=== PATIENT | male | born 1975 | race Caucasian/White ===

== ENCOUNTER 2025-01-30 11:22 | Outpatient (AMB) | payer OTHER, SELFPAY ==
--- OUTSIDE RECORDS SUMMARY | 2024-02-16 10:43 | XMS_ITS | Encounter Summary ---
[facility] Organization [facility] Address [address] [place] [address] Care Team Providers Care Home Worker Name Role Phone Yonny Nolasco Primary Care Provider [phone] Encounter Details Date Type Department Care Team (Late st Contact Info) Description 02/16/2024 10:43 AM EDT Hospital Encounter TH HISTORIC ENCOUNTERS EASTERN CONVERSION ONLY Social History Tobacco Use Types Packs/Day Years Used Date Smoking Tobacco: Never Smokeless Tobacco: Never Alcohol Use Standard Drinks/Week Comments Not Currently 0 (1 standard drink = 0.6 oz pur e alcohol) Sex and Gender Information Value Date Recorded Sex Assigned at Male 05/23/2024 10:14 AM EST Legal Sex Male 4:54 PM EDT Gender Identity Male 05/23/2024 10:14 AM EST Sexual Orientation Straight 05/23/2024 10 :14 AM EST documented as of this encounter Last Filed Vital Signs Vital Sign Reading Time Taken Comments Blood Pressure - - Pulse - - Temperature - - Respiratory Rate - - Oxygen Saturation - - Inhaled Oxygen Concentration - - Weight 121 kg (267 lb 10.2 oz) 01/26/2024 10:52 AM EDT Height 188 cm (6' 2 ) 01/26/2024 10:52 AM EDT Body Mass Index 34.36 01/26/2024 10:52 AM EDT documented in this encounter Progress Notes * Historical, Notes Results - 02/16/2024 10:30 AM EDT Suleman arrives ambulatory with steady gait with his for C8 of Docetaxel today. Well appearing and reports that he has been feeling good - stable assessment completed. Port in right chest accessedper protocol with no difficulty, +brisk blood return noted. Labs reviewed and within treatment kirill eters - meds released to pharmacy - Premed given to patient. Patient resting comfortably in recliner with call pride in reach. 1152- Docetaxel infusion up on pump as ordered. 1258 - Infusion completed - well tolerated - good appetite for lunch. Port flushed and deaccessed per protocol. Has next appts in place. Stable upon discharge. documented in this encounter Plan of Treatment Upcoming Encounters Date Type Department Care Team (Late st Contact Info) Description 02/21/2025 3:00 PM EDT Appointment [facility] [address] [place] [phone] 03/14/2025 1:45 PM EST Office Visit [facility] Hematology Oncology [address] [place] [phone] Sj Addison MD [address] [place] [address] documented as of this encounter Visit Diagnoses Not on filedocumented in this encounter Additional Health Concerns Infection Onset Date Last Indicated Resolved Time Respiratory Rule-Out 05/23/2024 05/23/2024 025 2:07 PM EST COVID-19 Rule-Out 05/23/2024 05/23/2024 05/23/2024 2:07 PM EST documented as of this encounter Care Teams Home Worker Relationship Specialty Start Date End Date Yonny Nolasco PA [address] [place] [phone] PCP - General 07/27/23 documented as of this encounter
--- OUTSIDE RECORDS SUMMARY | 2024-02-22 15:01 | XMS_ITS | Encounter Summary ---
[facility] Organization [facility] Address [address] [place] [address] Care Team Providers Care Manufacturing Software Engineer Name Role Phone Yonny Nolasco Primary Care Provider [phone] Encounter Details Date Type Department Care Team (Late st Contact Info) Description 02/22/2024 3:01 PM EDT Hospital Encounter TH HISTORIC ENCOUNTERS EASTERN [...] - Inhaled Oxygen Concentration - - Weight 126 kg (278 lb 14.1 oz) 02/16/2024 11:07 AM EDT Height 188 cm (6' 2 ) 02/16/2024 11:07 AM EDT Body Mass Index 35.81 02/16/2024 11:07 AM EDT documented in this encounter Progress Notes * Historical, Notes Results - 02/22/2024 3:00 PM EDT Arrived amb with for elijosephd. Pt is feeling well, has rash on forearms that is itchy. Has tried benadryl cream but it did not help, asking for something for rash. Halo sent to Dr. Addison, per Dr. Addison, pt should follow up with PCP about rash. Pt also asking when he can get his flu shot, has chemo scheduled for 03/08 but no orders left in [facility], Halo sent to Dr. Addison to see if pt will continue on chemo. He does go to [place] next week on02/27. No more chemo per Dr. Addison, pt already completed 8 cycles. OK for flu shot at any time. Pt in agreement with this plan 1534 Eligard warmed and administered into RIGHT arm, tolerated with burning. Next eligard inj scheduled for 6 months. Appts adjusted in [facility], pt will come upstairs for port flush after next MD f/u inNov. Left amb with , stable at D/C. documented in this encounter Plan of Treatment Upcoming Encounters Date Type Department Care Team (Late st Contact Info) Description 02/21/2025 3:00 PM EDT Appointment [facility] [address] [place] [phone] 03/14/2025 1:45 PM EST Office Visit [facility] Hematology Oncology [address] [place] [phone] Sj Addison MD [address] [place] [address] documented as of this encounter Visit Diagnoses Not on filedocumented in this encounter Additional Health Concerns Infection Onset Date Last Indicated Resolved Time Respiratory Rule-Out 05/23/2024 05/23/2024 025 2:07 PM EST COVID-19 Rule-Out 05/23/2024 05/23/2024 05/23/2024 2:07 PM EST documented as of this encounter Care Teams Manufacturing Software Engineer Relationship Specialty Start Date End Date Yonny Nolasco PA [address] [place] [phone] PCP - General 07/27/23 documented as of this encounter
--- NOTE | 2025-01-30 11:29 | MHC.PC.OV ---
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 Prostate cancer with bone metastasis: - Prostate cancer has metastasized to the bones, affecting the hips, initially causing pain and difficulty walking, now managed with fentanyl patches. - Participating in a clinical trial for six months with no cancer progression noted. - Ostomy in place due to previous bowel obstruction related to prostate cancer. Diabetes mellitus: - Diagnosed with diabetes mellitus for a couple of years, managed with metformin, Lantus, and Trulicity. - Referred to a diabetes clinic for elevated A1c levels noted by cancer care team. Essential hypertension: - Managed with hydrochlorothiazide, libidolato, and lisinopril. Review of Systems - Cardiovascular: Reports high heart rate. Denies chest pain or palpitations. - Respiratory: Denies dyspnea or cough. - Gastrointestinal: Reports good appetite. Denies nausea or vomiting. - Musculoskeletal: Reports initial difficulty walking due to hip pain, now improved. - General: Reports good sleep. Denies fatigue or weight loss. 10-point ROS reviewed and negative except as noted in HPI Past Medical History - Prostate cancer with bone metastasis - Diabetes mellitus - Essential hypertension - Ostomy due to bowel obstruction Health Maintenance - Regular follow-up at diabetes clinic for management of elevated A1c levels. - Participation in clinical trial for prostate cancer management. Physical Exam General: Well-appearing, in no acute distress. Pale Vital signs: Heart rate is high. HEENT: Normocephalic, atraumatic. PERRLA, EOMI. Conjunctiva clear, sclera anicteric. Oropharynx clear, mucous membranes moist. TMs intact bilaterally. Neck: Supple, no lymphadenopathy, no thyromegaly, no JVD or carotid bruits. Cardiovascular: RRR, normal S1/S2, no murmurs, rubs, or gallops. Peripheral pulses 2+ and symmetric. No edema. Respiratory: Lungs clear to auscultation bilaterally, no wheezes, rales, or rhonchi. Normal effort. Abdomen: Soft, non-tender, non-distended. Normoactive bowel sounds. No hepatosplenomegaly, no masses. Ostomy in place on the left side. MSK: Full range of motion, no joint swelling or deformity. Normal gait. Skin: Warm, dry, intact. No rashes, lesions, or pallor. Neuro: Alert and oriented x3. Cranial nerves II-XII intact. Strength 5/5 throughout. Sensation intact. Reflexes 2+ symmetric. Normal coordination and gait. Psych: Appropriate mood and affect. Normal judgment and insight. Plan 1. Prostate Cancer With Bone Metastasis - Continue clinical trial participation and monitor cancer progression. - Manage bone pain with fentanyl patches. - Conduct CT scans to assess current status and plan further treatment. 2. Diabetes Mellitus - Continue diabetes management with current medications and attend diabetes clinic for A1c monitoring. 3. Essential Hypertension - Continue current antihypertensive medications. Discussion Notes During the visit, we discussed the ongoing management of prostate cancer, diabetes, and hypertension. The patient is participating in a clinical trial for prostate cancer, which has shown stability in disease progression. We reviewed the current medication regimen for diabetes and hypertension, emphasizing the importance of adherence. The need for regular follow-up at the diabetes clinic was highlighted to monitor A1c levels. We also discussed the importance of pain management for bone metastasis and the upcoming CT scans to evaluate the current status of the cancer. The patient was offered referrals for child protective services social worker and behavioral health support to address the impact of his condition on his family and daily life. Patient was informed and verbally consented to the use of an ambient scribe for clinic note documentation during this visit. Patient Instructions - Continue taking all prescribed medications as directed. - Attend all scheduled appointments, including the diabetes clinic and upcoming CT scans. - Monitor for any new or worsening symptoms and report them promptly. - Consider discussing child protective services social worker and behavioral health support with your family. [facility] Medical History (Updated 01/30/25 @ 12:11 by Damián Arenas MD) Prostate cancer metastatic to bone Family History (Updated 01/30/25 @ 11:45 by Kayla Champion CMA) Mother Diabetes Father No problems noted. Social History Housing: Apartment Patient Tobacco Use Status: Never used Tobacco service: No Current occupational status: unemployed Cognitive needs: Yes Hearing needs: No Vision needs: No Questionnaire PHQ-9 Over the last 2 weeks, how often have you been bothered by any of the following problems? 1. Little interest or pleasure in doing things: more than half the days 2. Feeling down, depressed, or hopeless: more than half the days 3. Trouble falling or staying asleep, or sleeping too much: not at all 4. Feeling tired or having little energy: more than half the days 5. Poor appetite or overeating: not at all 6. Feeling bad about yourself - or that you are a failure or have let yourself or your family down: not at all 7. Trouble concentrating on things, such as reading the newspaper or watching television: not at all 8. Moving or speaking so slowly that other people could have noticed. Or the opposite - being so fidgety or restless that you have been moving around a lot more than usual: not at all 9. Thoughts that you would be better off or of hurting yourself in some way: not at all Total score: 6 Depression Screening Interpretation: Positive Depression Screening Done: Yes Source: Developed by Drs. Nestor Frey, Nasrin Posada, Mario Jaramillo and colleagues, with an educational shayy from [employer]. Thrive Questionnaire Date Thrive assessed: 01/30/25 I am a: Patient What is your living situation today?: I have a steady place to live Within the past 12 months, did the food you bought not last and you didn't have the money to get more?: Never true Within the past 12 months, did you worry whether your food would run out before you got money to buy more?: Never true Do you have trouble paying for medicines?: No Do you have trouble getting transportation to medical appointments?: No Do you have trouble paying your heating and electricity bill?: Yes Do you have trouble taking care of your child, family member or friend?: No Are you currently unemployed and looking for a job?: No Are you interested in more education?: No Please select the resources that you would like help with: Housing/Halfway and Utilities Currently or been in a relationship where the following occur: No concerns reported THRIVE Score: 1 AUDIT C Alcohol Use Questionnaire (AUDIT-C) 1. How often do you have a drink containing alcohol?: Never Total Score: 0 JENNY-7 AMB Questionnaire JENNY-7 Date JENNY - 7 assessed: 01/30/25 Feeling nervous, anxious, or on edge: 1 = Several days Not being able to stop or control worryin = Several days Worrying too much about different things: 1 = Several days Trouble relaxin = Several days Being so restless that it is hard to sit still: 0 = Not at all Becoming easily annoyed or irritable: 0 = Not at all Feeling afraid as if something awful might happen: 1 = Several days Total JENNY-7 score (0-4 normal; 5-9 mild; 10-14 moderate; 15-21 severe): 5 Source: Developed by Drs. Nestor Frey, Nasrin Posada, Mario Jaramillo and colleagues, with an educational shayy from [employer]. Physical exam (Primary Care) Depression Screening Interpretation: Positive Currently or been in a relationship where the following occur: No concerns reported Coding Level of Care Code New Pt Level 3 (51830) Diagnoses Establishing care with new doctor, encounter for Z76.89 Encounter for screening, unspecified Z13.9 Counseling, unspecified Z71.9 Screening for depression Z13.31 Screening for HIV (human immunodeficiency virus) Z11.4 Routine screening for STI (sexually transmitted infection) Z11.3 Adjustment disorder with mixed anxiety and depressed mood F43.23 Adjustment disorder type: with mixed anxiety and depressed mood Class 2 obesity E66.812 Tachycardia R00.0 Prostate cancer metastatic to bone C61; C79.51 History of colon surgery Z98.890 History of creation of ostomy Z93.9 Assessment & Plan Assessment & Plan (1) Establishing care with new doctor, encounter for: Code(s): Z76.89 - Persons encountering health services in other specified circumstances (2) Encounter for screening, unspecified: Code(s): Z13.9 - Encounter for screening, unspecified (3) Counseling, unspecified: Code(s): Z71.9 - Counseling, unspecified (4) Screening for depression: Code(s): Z13.31 - Encounter for screening for depression (5) Screening for HIV (human immunodeficiency virus): Code(s): Z11.4 - Encounter for screening for human immunodeficiency virus [HIV] (6) Routine screening for STI (sexually transmitted infection): Code(s): Z11.3 - Encounter for screening for infections with a predominantly sexual mode of transmission (7) Adjustment disorder: Code(s): F43.20 - Adjustment disorder, unspecified Qualifiers: Adjustment disorder type: with mixed anxiety and depressed mood Qualified Code(s): F43.23 - Adjustment disorder with mixed anxiety and depressed mood (8) Class 2 obesity: Code(s): E66.812 - Obesity, class 2 (9) Tachycardia: Code(s): R00.0 - Tachycardia, unspecified (10) Prostate cancer metastatic to bone: Code(s): C61 - Malignant neoplasm of prostate; C79.51 - Secondary malignant neoplasm of bone Category: Medical (11) History of colon surgery: Code(s): Z98.890 - Other specified postprocedural states (12) History of creation of ostomy: Code(s): Z93.9 - Artificial opening status, unspecified Plan Orders: Orders Complete Blood Count Auto Diff Today Z13.9 - Encounter for screening, unspecified, Z76.89 - Persons encountering health services in other specified circumstances Comprehensive Met. Panel Today Z13.9 - Encounter for screening, unspecified, Z76.89 - Persons encountering health services in other specified circumstances Hepatitis C Antibody Today Z13.9 - Encounter for screening, unspecified, Z76.89 - Persons encountering health services in other specified circumstances Hemoglobin A1c Today Z13.9 - Encounter for screening, unspecified, Z76.89 - Persons encountering health services in other specified circumstances Hepatitis B Surface Antibody Today Z13.9 - Encounter for screening, unspecified, Z76.89 - Persons encountering health services in other specified circumstances Hepatitis B Surface Antigen Today Z13.9 - Encounter for screening, unspecified, Z76.89 - Persons encountering health services in other specified circumstances HIV Ab/Ag Today Z13.9 - Encounter for screening, unspecified, Z76.89 - Persons encountering health services in other specified circumstances Lipid Panel Today Z13.9 - Encounter for screening, unspecified, Z76.89 - Persons encountering health services in other specified circumstances UA CC w/rflx Micro + Cult Today Z13.9 - Encounter for screening, unspecified, Z76.89 - Persons encountering health services in other specified circumstances Vitamin B12 and Folate Today Z13.9 - Encounter for screening, unspecified, Z76.89 - Persons encountering health services in other specified circumstances Vitamin D 1,25 dihydroxy Today Z13.9 - Encounter for screening, unspecified, Z76.89 - Persons encountering health services in other specified circumstances Referrals Behavioral Health Referral C61 - Malignant neoplasm of prostate, C79.51 - Secondary malignant neoplasm of bone Medic Technician Referral C61 - Malignant neoplasm of prostate, C79.51 - Secondary malignant neoplasm of bone Nurse Navigator Referral C61 - Malignant neoplasm of prostate, C79.51 - Secondary malignant neoplasm of bone Scribe Plan - Not visible on output:
[2025-01-30 11:31] VITALS: BP 114/82; PULSE 112; TEMP 36.9; O2SAT 98; BMI 39.1
--- OUTSIDE RECORDS SUMMARY | 2025-01-30 14:31 | XMS_ITS | Clinical Summary ---
[facility] Address [address] [place] [address] Care Team Providers Care Environmental Health And Safety Manager Name Role Phone Yonny Nolasco Primary Care Provider + Allergies No known active allergies Medications Medication Sig Dispensed Refills Start Date End Date Status atorvastatin (LIPITOR) tablet 20 mg Take 1 tablet (20 mg total) by mouth every night at bedtime. 0 06/03/2023 Active Diclofenac Sodium 1 % GEL 0 07/14/2023 Active Trulicity 3 MG/0.5ML subcutaneous pen-injector INJECT 3 MG SUBCUTANEOUS INFUSION EVERY WEEK, ROTATE INJECTION SITES 0 04/23/2023 Active hydroCHLOROthiazide (HYDRODIURIL) tablet 25 mg 0 07/21/2023 Active Lantus SoloStar 100 UNIT/ML injection 0 07/19/2023 Active B-D UF III MINI PEN NEEDLES 31G X 5 MM MISC USE WITH LANTUS PEN DAILY 0 04/23/2023 Active labetalol (NORMODYNE) 200 MG tablet Take 1 tablet (200 mg total) by mouth 2 (two) times a day. 0 07/04/2023 Active lisinopril (PRINIVIL,ZESTRIL) tablet 40 mg Take 1 tablet (40 mg total) by mouth daily. 0 07/04/2023 Active LORazepam (ATIVAN) 1 MG tablet Take 1 tablet (1 mg total) by mouth every 6 (six) hours as needed. 30 tablet 0 08/10/2023 Active ondansetron (ZOFRAN) 8 MG tablet Take 1 tablet (8 mg total) by mouth every 8 (eight) hours as needed for nausea. 32 tablet 4 08/10/2023 Active predniSONE (DELTASONE) 5 mg tabletIndications:P rostate cancer metastatic to bone (HCC) Take 1 tablet (5 mg total) by mouth daily. 30 tablet 6 09/21/2023 Active fentaNYL (DURAGESIC) 50 MCG/HRIndications:P rostate cancer metastatic to bone (HCC) Place 1 patch onto the skin every third day. 10 patch 0 12/15/2023 Active lidocaine-prilocain e (EMLA) cream APPLY TOPICALLY ONCE FOR 1 DOSE. 30 g 2 02/08/2024 Active Active Problems Problem Noted Date Diagnosed Date Prostate cancer metastatic to bone 08/23/2023 Rectal cancer metastatic to bone 08/10/2023 Social History Tobacco Use Types Packs/Day Years Used Date Smoking Tobacco: Never Smokeless Tobacco: Never Tobacco Cessation:Counseling Given: Not Answered Alcohol Use Standard Drinks/Week Comments Not Currently 0 (1 standard drink = 0.6 oz pur e alcohol) Sex and Gender Information Value Date Recorded Sex Assigned at Male 07/22/2023 3:52 PM EDT Gender Identity Not on file Sexual Orientation Not on file Job Start Date Occupation Industry Not on file Not on file Not on file Last Filed Vital Signs Vital Sign Reading Time Taken Comments Blood Pressure 115/73 02/22/2024 3:06 PM EDT Pulse 97 02/22/2024 3:06 PM EDT Temperature 36.7 C (98 F) 02/22/2024 3:06 PM EDT Respiratory Rate 18 02/16/2024 11:0 7 AM EDT Oxygen Saturation 98% 02/22/2024 3:06 PM EDT Inhaled Oxygen Concentration - - Weight 126.5 kg (278 lb 14.1 oz) 2023 11:07 AM EDT Height 188 cm (6' 2 ) 02/16/2024 11:07 AM EDT Body Mass Index 35.81 02/16/2024 11:07 AM EDT Plan of Treatment Health Maintenance Due Date Last Done Comments Hepatitis B Vaccines (1 of 3 - 3-dose series) 1977 Hepatitis C Screening 1977 COVID-19 Vaccine (#1) 1982 Pneumococcal Vaccine (1 of 2 - PCV) 1983 Depression Screening 1989 BMI Counseling 1995 Preventative Health Evaluation 1995 DTap / Tdap / Td (2 - Tdap) 10/02/2018 10/02/2008 Colon Cancer Screening (Colonoscopy) 2022 Influenza Vaccine (#1) 2025 2, 02/27/2021, 03/12/2018, Additional history exists RSV Ped < 20 months Aged Out No longe r eligible based on patient's age to complete this topic Care Teams Environmental Health And Safety Manager Relationship Specialty Start Date End Date Yonny Nolasco PA [address] [place] [phone] PCP - General Physician Bobcat Driver/Labor 07/27/23
--- OUTSIDE RECORDS SUMMARY | 2025-01-30 14:31 | XMS_ITS | Encounter Summary ---
Author Organization [facility] Address [address] [place] [address] [place] [address] Phone Care Team Providers Care Ticket Scheduler Name Role Phone Gustavo Temple MD Unavailable [phone] Yonny Martinez Unavailable Unavailable Pcp, Unknown Primary Care Provider UnavailSj Montenegro MD Unavailable [phone] Pcp, Not Required Primary Care Provider Unavaila Jennifer Artis RN Unavailable FILI [email or web address]. Juany Szymanski [facility] Unavailable [phone] Annetta Dia PET CREMATORY WORKER, PhD Unavailable Pcp, Unknown Primary Care Provider Unavailabl e Encounter Details Date Type Department Care Team (Late st Contact Info) Description 07/24/2024 [facility] [place] [facility] [address], MRI 300 [facility] 4th [place] [address] Social History Tobacco Use Types Packs/Day Years Used Date Smoking Tobacco: Never Assessed Child or Family Care Answer Date Record ed Do you have problems with on e of the following making it difficult for you to work, study, or receive health care? No 08/04/2023 Education Answer Date Recorded Are you interested in help w ith more adult education (for example, completing high school, GED, job training, learning the Nepalese language, technical skills, or developing parenting skills)? No 08/04/2023 Are you concerned about learning? Not on file 08/04/2023 No 08/04/2023 Yes 08/04/2023 Food Answer Date Recorded Within the past 6 months we worried whether our food would run out before we got money to buy more. I choose not to answer 08/04/2023 Within the past 6 months the food we bought just didn't last and we didn't have enough money to get more. I choose not to answer 08/04/2023 Residential Stability Answer Date Recor ded What is your housing situation today? I have herber sing 08/04/2023 How many times have you move d in the past 12 months? Zero (I did not move) 08/04/2023 Paying for Meds Answer Date Recorded Do you have trouble paying for medicines? No 08/04/2023 Paying Utility Bills Answer Date Record ed Do you have trouble paying your heating or elect ricity bill? Yes 08/04/2023 Transportation Answer Date Recorded Has the lack of transportati on kept you from medical appointments or from getting medications? I choose not to answer 08/04/2023 Digital Access Answer Date Recorded No 08/01/2023 No 08/01/2023 Reliable internet access at home? Not on file 08/01/2023 Device with a working camera? Not on file Sex and Gender Information Value Date Recorded Sex Assigned at Male 07/29/2023 11:41 AM EDT Legal Sex Male 11:38 AM EDT Gender Identity Male 07/29/2023 11:41 AM EDT Sexual Orientation Straight 07/29/2023 11 :41 AM EDT documented as of this encounter Last Filed Vital Signs Vital Sign Reading Time Taken Comments Blood Pressure - - Pulse - - Temperature - - Respiratory Rate - - Oxygen Saturation - - Inhaled Oxygen Concentration - - Weight 123.4 kg (272 lb) 07/25/2024 10:56 AM EDT Height - - Body Mass Index 36.48 02/28/2024 3:04 PM EDT documented in this encounter Plan of Treatment Upcoming Encounters Date Type Department Care Team (Late st Contact Info) Description 10/10/2024 [facility] [place] [address] [address] 10/10/2024 Procedure Pass [facility] [place] [address] [address] 02/08/2025 11:30 AM EDT Appointment [facility], Nuclear Medicine [address] [place] [address] Renata Gaston MD [address] [place] [address] Chris@[facility] 02/08/2025 1:30 PM EDT Appointment [place], [place] [address] [address] Renata Gaston MD [address] [place] [address] Chris@[facility] 02/08/2025 2:15 PM EDT Appointment [facility], Nuclear Medicine [address] [place] [address] Renata Gaston MD [address] [place] [address] Chris@[facility] 02/11/2025 1:50 PM EDT Blood Draw Laboratory Services, [facility] [address] [facility] 2nd [place] [address] Renata Gaston MD [address] [place] [address] Chris@[facility] 02/11/2025 3:00 PM EDT Office [facility], [facility] 450 [facility], 11th [place] [address] Wendy Epps MD, MPH 450 [place] [address] ROBIN@[facility] 02/11/2025 3:00 PM EDT Nurse Only [facility], [address], [address] [place] [address] Renata Gaston MD [address] [place] [address] Chris@[facility] 02/11/2025 4:00 PM EDT Infusion Infusion Therapy Services [address], 11th [place] [address] Renata Gaston MD [address] [place] [address] Chris@[facility] Jennifer Suarez RN [address] [place] [address] ELDA@ [facility] 02/12/2025 1:00 PM EDT Appointment [facility], Nuclear Medicine [address] [address] Renata Gaston MD [address] [place] [address] Chris@[facility] 02/20/2025 3:00 PM EDT Telemedicine Adult Palliative Care, [address], [address]th [place] [address] Annetta Dia NP, PhD [address] [place] [address] [place] [address] dyana [email or web address]. Kathe Ferreira MD, MPH [address] [place] [address] [place] [address] [email or web address] documented as of this encounter Visit Diagnoses Not on filedocumented in this encounter Care Teams Ticket Scheduler Relationship Specialty Start Date End Date Yonny Martinez PA [address] [place] [address] PCP - Internal Medicine Physician Mortgage Loan Computation Clerk 08/01/23 01/20/25 Pcp, Unknown PCP - General 08/04/23 08/20/24 Pcp, Not Required [address] [place] [address] PCP - General 08/21/24 01/20/25 Pcp, Unknown PCP - General 01/21/25 Gustavo Temple MD [address] [place] [address] Joseph@[facility] Medical Oncology 08/01/23 Sj Addison MD [address] [place] [phone] Bernadette@[email or web address] Medical Oncology 09/13/23 Jennifer Suarez RN [address] [place] [address] ELDA@[email or web address] Primary Infusion Nurse 08/30/24 Juany Echeverria, [address] [address] cookie@[facility] Policy Advisor Licensed Clinical Policy Advisor 09/10/24 Annetta Dia, PET CREMATORY WORKER, PhD [address] [place] [address] [place] [address] krystle [email or web address] Palliative Care 10/03/24 documented as of this encounter Additional Source Comments The information contained in this document represents components of the legal health record. It is not the complete legal health record.[facility]
--- OUTSIDE RECORDS SUMMARY | 2025-01-30 14:31 | XMS_ITS | Encounter Summary ---
Author Organization [facility] Address [address] [place] [address] [place] [address] Phone Care Team Providers Care Specialty Transformer Assembler Name Role Phone Gustavo Temple MD Unavailable [phone] Yonny Martinez Unavailable Unavailable Pcp, Unknown Primary Care Provider UnavailSj Montenegro MD Unavailable [phone] Pcp, Not Required Primary Care Provider Unavaila Jennifer Artis RN Unavailable FILI [email or web address]. Juany Szymanski [facility] Unavailable [phone] Annetta Dia COMPLIANCE MANAGER, PhD Unavailable Pcp, Unknown Primary Care Provider Unavailabl e Encounter Details Date Type Department Care Team (Late st Contact Info) Description 08/10/2024 Procedure Pass [facility] Cross Sectional Interventional Radiology [address] [place] [address] Social History Tobacco Use Types Packs/Day Years [...] high school, GED, job training, learning the Romansh language, technical skills, or developing parenting skills)? [...] AM EDT documented as of this encounter Plan of Treatment Upcoming Encounters Date Type Department Care Team (Late st Contact Info) Description 10/10/2024 Procedure Pass [place] [address] [address] 10/10/2024 Procedure Pass [place] [address] [address] 02/08/2025 11:30 AM EDT Appointment [facility], Nuclear Medicine [address] [address] Renata Gaston MD [address] [place] [address] Chris@[facility] 02/08/2025 1:30 PM EDT Appointment [facility] [place] [place] [address] [address] Renata Gaston MD [address] [facility] [address] [address] [place] [address] Chris@[facility] 02/08/2025 2:15 PM EDT Appointment [facility], Nuclear Medicine [address] [address] Renata Gaston MD 450 [facility] 1230 [place] [address] Chris@[facility] 02/11/2025 1:50 PM EDT Blood Draw Laboratory Services, [address], 2nd [place] [address] Renata Gaston MD [address] [facility] [address] [place] [address] Chris@[facility] 02/11/2025 3:00 PM EDT Office Visit [facility], [address], 11th [place] [address] Wendy Epps MD, MPH 450 [place] [address] ROBIN@[facility] 02/11/2025 3:00 PM EDT Nurse Only [facility], [address], [address] [place] [address] Renata Gaston MD [address] [place] [address] Chris@[facility] 02/11/2025 4:00 PM EDT Infusion Infusion Therapy Services [facility] [address], [address], [place] [address] Renata Gaston MD [address] [place] [address] Chris@[facility] Jennifer Suarez RN [address] [place] [address] ELDA@ [facility] 02/12/2025 1:00 PM EDT Appointment [facility], Nuclear Medicine [address] [address] Renata Gaston MD [address] [place] [address] Chris@[facility] 02/20/2025 3:00 PM EDT Telemedicine Adult Palliative Care, [address], [place] [address] Annetta Dia NP, PhD [address] [place] [address] [place] [address] dyana [email or web address]. Kathe Ferreira MD, MPH [address] [place] [address] [email or web address] documented as of this encounter Visit Diagnoses Not on filedocumented in this encounter Care Teams Specialty Transformer Assembler Relationship Specialty Start Date End Date Yonny Martinez PA [address] [place] [address] PCP - Internal Medicine Physician Chronic Disease Epidemiologist 08/01/23 01/20/25 Pcp, Unknown PCP - General 08/04/23 08/20/24 Pcp, Not Required [address] [place] [address] PCP - General 08/21/24 01/20/25 Pcp, Unknown PCP - General 01/21/25 Gustavo Temple MD [address] [place] [address] Joseph@[email or web address] Medical Oncology 08/01/23 Sj Addison MD [address] [place] [phone] Bernadette@[facility] Medical Oncology 09/13/23 Jennifer Suarez RN [address] [place] [address] ELDA@[facility] Primary Infusion Nurse 08/30/24 Juany Echeverria, [facility] 300 [place] [address] [email or web address] Digital Sales Assistant Licensed Clinical Digital Sales Assistant 09/10/24 Annetta Dia, FABI, PhD [address] [place] [address] [place] [address] krystle [email or web address] Palliative Care 10/03/24 documented as of this encounter Additional Source Comments The information contained in this document represents components of the legal health record. It is not the complete legal health record.[facility]
--- OUTSIDE RECORDS SUMMARY | 2025-01-30 14:31 | XMS_ITS | Encounter Summary ---
Author Organization [facility] Address [address] [place] [address] [place] [address] Phone Care Team Providers Care Lead Man Over All Dies In Pattern Shop Name Role Phone Gustavo Temple MD Unavailable [phone] Yonny Martinez Unavailable Unavailable Pcp, Unknown Primary Care Provider UnavailSj Montenegro MD Unavailable [phone] Pcp, Not Required Primary Care Provider Unavaila Jennifer Artis RN Unavailable FILI [email or web address]. Juany Szymanski SEAFOOD MANAGER Unavailable [phone] Annetta Dia TRAVELING PHLEBOTOMIST, PhD Unavailable Pcp, Unknown Primary Care Provider Unavailabl e Encounter Details Date Type Department Care Team (Late st Contact Info) Description 08/10/2024 Procedure Pass [facility] [place] [place] 450 [facility], Floor L1 [place] [address] Social History Tobacco Use Types Packs/Day Years [...] high school, GED, job training, learning the Sami language, technical skills, or developing parenting skills)? [...] st Contact Info) Description 10/10/2024 Procedure Pass [place] [address] [address] 10/10/2024 Procedure Pass [place] [address] [address] 02/08/2025 11:30 AM EDT Appointment [facility], Nuclear Medicine [address] [address] Renata Gaston MD [address] [place] [address] Chris@[facility] 02/08/2025 1:30 PM EDT Appointment [facility] [place] [place] 300 [facility] 3rd [place] [address] Renata Gaston MD [address] [place] [address] Chris@[facility] 02/08/2025 2:15 PM EDT Appointment [facility], Nuclear Medicine [address] [address] Renata Gaston MD 450 [place] [address] [place] [address] Chris@[facility] 02/11/2025 1:50 PM EDT Blood Draw Laboratory Services, [address], 2nd Floor [place], [place] Renata Gaston MD [address] [place] [address] Chris@[facility] 02/11/2025 3:00 PM EDT Office Visit [facility], [facility] 450 [facility], 11th [place] [address] Wendy Epps MD, MPH 450 [place] [address] ROBIN@[facility] 02/11/2025 3:00 PM EDT Nurse Only [facility], [address], 11th [place] [address] Renata Gaston MD [address] [place] [address] Chris@[facility] 02/11/2025 4:00 PM EDT Infusion Infusion Therapy Services [facility] [address], [address], 11th [place] [address] Renata Gaston MD [address] [place] [address] Chris@[facility] Jennifer Suarez RN [address] [place] [address] ELDA@ [facility] 02/12/2025 1:00 PM EDT Appointment [facility], Nuclear Medicine [address] [address] Renata Gaston MD [address] [place] [address] Chris@[facility] 02/20/2025 3:00 PM EDT Telemedicine Adult Palliative Care, [address], 11th [place] [address] Annetta Dia NP, PhD [address] [place] [address] [place] [address] dyana [email or web address]. Kathe Ferreira MD, MPH [address] [place] [address] [email or web address] documented as of this encounter Visit Diagnoses Not on filedocumented in this encounter Care Teams Lead Man Over All Dies In Pattern Shop Relationship Specialty Start Date End Date Yonny Martinez PA [address] [place] [address] PCP - Internal Medicine Physician Otr Company Driver 08/01/23 01/20/25 Pcp, Unknown PCP - General 08/04/23 08/20/24 Pcp, Not Required [address] [place] [address] PCP - General 08/21/24 01/20/25 Pcp, Unknown PCP - General 01/21/25 Gustavo Temple MD [address] [place] [address] Joseph@[email or web address] Medical Oncology 08/01/23 Sj Addison MD [address] [place] [phone] Bernadette@[facility] Medical Oncology 09/13/23 Jennifer Suarez, JOSEFINA [address] [place] [address] ELDA@[facility] Primary Infusion Nurse 08/30/24 Juany Echeverria, [facility] 300 [place] [address] [email or web address] Data Visualization Developer Licensed Clinical Data Visualization Developer 09/10/24 Annetta Dia, FABI, PhD [address] [place] [address] [place] [address] krystle [email or web address] Palliative Care 10/03/24 documented as of this encounter Additional Source Comments The information contained in this document represents components of the legal health record. It is not the complete legal health record.[facility]
--- OUTSIDE RECORDS SUMMARY | 2025-01-30 14:31 | XMS_ITS | Encounter Summary ---
Author Organization [facility] Address [address] [place] [address] Phone Care Team Providers Care Beverage Steward Name Role Phone Gustavo Temple MD Unavailable [phone] Sj Addison MD Unavailable [phone] Jennifer Suarez RN Unavailable FILI [email or web address]. Juany Szymanski OCCUPATIONAL THERAPY ASSIST Unavailable Annetta Dia TRAUMA DIRECTOR, PhD Unavailable Pcp, Unknown Primary Care Provider Unavailabl e Encounter Details Date Type Department Care Team (Late st Contact Info) Description 01/25/2025 Orders Only [facility], [facility] [place] [address] [place] [address], 11th [place] [address] Wendy Epps MD, MPH [address] [place] [address] ROBIN@[facility] Prostate cancer (Primary Dx) Social History Tobacco Use Types Packs/Day Years [...] high school, GED, job training, learning the Maori language, technical skills, or developing parenting skills)? [...] your housing situation today? I have herber tray 08/04/2023 How many times have you move [...] with a working camera? Not on file Intimate Partner Violence Answer Date R ecorded Are you denied basic needs s uch as food, clothing, or medical care? No 08/30/2024 In the past 12 months have y ou been in a relationship with a person who hurts, threatens, or tries to control you? No 08/30/2024 Are you denied basic needs s uch as food, clothing, or medical care? No 08/30/2024 In the past 12 months have y ou been in a relationship with a person who hurts, threatens, or tries to control you? No 08/30/2024 Sex and Gender Information Value Date Recorded Sex Assigned at Male 07/29/2023 11:41 AM EDT Legal Sex Male 11:38 AM EDT Gender Identity Male 07/29/2023 11:41 AM EDT Sexual Orientation Straight 07/29/2023 11 :41 AM EDT documented as of this encounter Plan of Treatment Upcoming Encounters Date Type Department Care Team (Late st Contact Info) Description 10/10/2024 Procedure Pass [place], [place] [address] [address] 10/10/2024 Procedure Pass [place] [address] [address] 02/08/2025 11:30 AM EDT Appointment [facility], Nuclear Medicine [address] [place] [address] Renata Gaston MD [address] [place] [address] Chris@[facility] 02/08/2025 1:30 PM EDT Appointment [facility] [place] [address] [address] Renata Gaston MD [address] [place] [address] Chris@[facility] 02/08/2025 2:15 PM EDT Appointment [facility], Nuclear Medicine [address] [place] [address] Renata Gaston MD [address] [place] [address] Chris@[facility] 02/11/2025 1:50 PM EDT Blood Draw Laboratory Services, [facility] [address] [facility], 2nd [place] [address] Renata Gaston MD [address] [place] [address] Chris@[facility] 02/11/2025 3:00 PM EDT Office Visit [facility] for [facility] On[facility], [facility] 450 [facility], [address], [place] [address] Wendy Epps MD, MPH 450 [place] [address] ROBIN@[facility] 02/11/2025 3:00 PM EDT Nurse Only [facility], [address], [address] [place] [address] Renata Gaston MD [address] [place] [address] Chris@[facility] 02/11/2025 4:00 PM EDT Infusion Infusion Therapy Services [address], [address] [place] [address] Renata Gaston MD [address] [place] [address] Chris@[facility] Jennifer Suarez RN [address] [place] [address] ELDA@ [facility] 02/12/2025 1:00 PM EDT Appointment [facility], Nuclear Medicine [address] [address] Renata Gaston MD [address] [place] [address] Chris@[facility] 02/20/2025 3:00 PM EDT Telemedicine Adult Palliative Care, [address], 11th [place] [address] Annetta Dia, FABI, PhD [address] [place] [address] [place] [address] dyana [email or web address] Kathe Ferreira MD, MPH [address] [place] [address] jf@[facility] Scheduled Orders Name Type Priority Associated Diagnoses Orde r Schedule X-Label/study Lab Routine Prostate cancer Expected: 01/25/2025, Expires: 01/25/2026 documented as of this encounter Visit Diagnoses Diagnosis Prostate cancer- Primary Malignant neoplasm of prostate documented in this encounter Care Teams Beverage Steward Relationship Specialty Start Date End Date Pcp, Unknown PCP - General 01/21/25 Gustavo Temple MD [address] [place] [address] Joseph@[facility] Medical Oncology 08/01/23 Sj Addison MD [address] [place] [phone] Bernadette@[email or web address] Medical Oncology 09/13/23 Jennifer Suarez RN [address] [place] [address] ELAD@[facility] Primary Infusion Nurse 08/30/24 Juany Echeverria, [facility] 300 [place] [address] [email or web address] Industrial Retrofit Designer Licensed Clinical Industrial Retrofit Designer 09/10/24 Annetta Dia, FABI, PhD [address] [place] [address] [place] [address] krsytle [email or web address] Palliative Care 10/03/24 documented as of this encounter Additional Source Comments The information contained in this document represents components of the legal health record. It is not the complete legal health record.[facility]
--- OUTSIDE RECORDS SUMMARY | 2025-01-30 14:31 | XMS_ITS | Encounter Summary ---
Author Organization [facility] Address [address] [place] [address] [place] [address] Phone Care Team Providers Care Sound Effects Supervisor Name Role Phone Gustavo Temple MD Unavailable [phone] Yonny Martinez Unavailable Unavailable Sj Addison MD Unavailable [phone] Pcp, Not Required Primary Care Provider Unavaila Jennifer Artis RN Unavailable FILI [email or web address]. Juany Szymanski Unavailable [phone] Annetta Dia VALUER, PhD Unavailable Pcp, Unknown Primary Care Provider Unavailabl e Encounter Details Date Type Department Care Team (Late st Contact Info) Description 10/17/2024 Procedure Pass [facility] Cross Sectional Interventional Radiology [address] [place] [address] Social History Tobacco Use Types Packs/Day Years [...] high school, GED, job training, learning the Malay language, technical skills, or developing parenting skills)? [...] st Contact Info) Description 10/10/2024 Procedure Pass [place]-[address] [address] 10/10/2024 Procedure Pass [address] [address] 02/08/2025 11:30 AM EDT Appointment [facility], Nuclear Medicine [address] [place] [address] Renata Gaston MD [address] DA [facility] [place] [address] Chris@[facility] 02/08/2025 1:30 PM EDT Appointment [address] [address] Renata Gaston MD [address] DA [address] [place] [address] Chris@[facility] 02/08/2025 2:15 PM EDT Appointment [facility], Nuclear Medicine [address] [place] [address] Renata Gaston MD [address] [place] [address] Chris@[facility] 02/11/2025 1:50 PM EDT Blood Draw Laboratory Services, [facility] [address] [facility], 2nd [place] [address] Renata Gaston MD [address] [place] [address] Chris@[facility] 02/11/2025 3:00 PM EDT Office Visit [facility], [address], [address] [place] [address] Wendy Epps MD, MPH 450 [place] [address] ROBIN@[facility] 02/11/2025 3:00 PM EDT Nurse Only [facility], [address], [address] [place] [address] Renata Gaston MD [address] [place] [address] Chris@[facility] 02/11/2025 4:00 PM EDT Infusion [facility], [address], [address] [place] [address] Renata Gaston MD [address] [place] [address] Chris@[facility] Jennifer Suarez, JOSEFINA [address] [place] [address] ELDA@ [facility] 02/12/2025 1:00 PM EDT Appointment [facility], Nuclear Medicine [address] [address] Renata Gaston MD [address] [place] [address] Chris@[facility] 02/20/2025 3:00 PM EDT Telemedicine Adult Palliative Care, [address], [address] [place] [address] Annetta Dia NP, PhD [address] [place] [address] dyana [email or web address]. Kathe Ferreira MD, MPH [address] [place] [address] [email or web address] documented as of this encounter Visit Diagnoses Not on filedocumented in this encounter Care Teams Sound Effects Supervisor Relationship Specialty Start Date End Date Yonny Martinez PA [address] [place] [address] PCP - Internal Medicine Physician Patient Registration Specialist 08/01/23 01/20/25 Pcp, Not Required [address] [place] [address] PCP - General 08/21/24 01/20/25 Pcp, Unknown PCP - General 01/21/25 Gustavo Temple MD [address] [place] [address] Joseph@[email or web address] Medical Oncology 08/01/23 Sj Addison MD [address] [place] [phone] Bernadette@[email or web address] Medical Oncology 09/13/23 Jennifer Suarez RN [address] [place] [address] ELDA@[facility] Primary Infusion Nurse 08/30/24 Juany Echeverria, [facility] [address] [place], [place] [phone] [email or web address] Log Turner Licensed Clinical Log Turner 09/10/24 Annetta Dia NP, PhD [address] [place] [address] annettaDannasamiraheather [email or web address] Palliative Care 10/03/24 documented as of this encounter Additional Source Comments The information contained in this document represents components of the legal health record. It is not the complete legal health record.[facility]
--- OUTSIDE RECORDS SUMMARY | 2025-01-30 14:31 | XMS_ITS | Encounter Summary ---
Author Organization [facility] Address [address] [place] [address] Care Team Providers Care It Senior Analyst Name Role Phone Yonny Nolasco Primary Care Provider + Encounter Details Date Type Department Care Team Description 08/10/2023 Social Work [facility] Oncology Services [address] [place] [address] Geovani Cortés [facility] Social History Tobacco Use Types Packs/Day Years [...] file Not on file Not on file documented as of this encounter Plan of Treatment Not on file documented as of this encounter Visit Diagnoses Not on filedocumented in this encounter Care Teams It Senior Analyst Relationship Specialty Start Date End Date Yonny Nolasco PA [address] [place] [address] PCP - General Physician Commercial Driver'S License Driver 07/27/23 documented as of this encounter
--- OUTSIDE RECORDS SUMMARY | 2025-01-30 14:31 | XMS_ITS | Encounter Summary ---
Author Organization [facility] Address [address] [place] [address] [place] [address] Phone Care Team Providers Care Glass Sander Name Role Phone Gustavo Temple MD Unavailable [phone] Yonny Martinez Unavailable Unavailable Pcp, Unknown Primary Care Provider UnavailSj Montenegro MD Unavailable [phone] Pcp, Not Required Primary Care Provider Unavaila Jennifer Artis RN Unavailable FILI [email or web address] Juany Szymanski [facility] Unavailable [phone] Annetta Dia TIRE CENTER MANAGER, PhD Unavailable Pcp, Unknown Primary Care Provider Unavailabl e Encounter Details Date Type Department Care Team (Late st Contact Info) Description 06/28/2024 Procedure Pass [facility] MR Imaging, [place] [address] [place] [address] Social History Tobacco Use Types Packs/Day Years [...] high school, GED, job training, learning the Mongolian language, technical skills, or developing parenting skills)? [...] st Contact Info) Description 10/10/2024 Procedure Pass [place] [address] [address] 10/10/2024 Procedure Pass [place] [address] [address] 02/08/2025 11:30 AM EDT Appointment [facility], Nuclear Medicine [address] [address] Renata Gaston MD [address] [place] [address] Chris@[facility] 02/08/2025 1:30 PM EDT Appointment [facility], [place] [address] [address] Renata Gaston MD 450 [facility] [address] [place] [address] Chris@[facility] 02/08/2025 2:15 PM EDT Appointment [facility], Nuclear Medicine [address] [address] Renata Gaston MD 450 [facility] 1230 [place] [address] Chris@[facility] 02/11/2025 1:50 PM EDT Blood Draw Laboratory Services, [address], 2nd [place] [address] Renata Gaston MD 450 [facility] 1230 [place] [address] Chris@[facility] 02/11/2025 3:00 PM EDT Office Visit [facility], [address], 11th [place] [address] Wendy Epps MD, MPH 450 [place] [address] ROBIN@[facility] 02/11/2025 3:00 PM EDT Nurse Only [facility] for [facility] On[facility], [place], [address] [place] [address] Renata Gaston MD [address] [place] [address] Chris@[facility] 02/11/2025 4:00 PM EDT Infusion Infusion Therapy Services [place] [address], [address], 11th [place] [address] Renata Gaston MD [address] [place] [address] Chris@[facility] Jennifer Suarez RN [address] [place] [address] ELDA@ [facility] 02/12/2025 1:00 PM EDT Appointment [facility], Nuclear Medicine [address] [address] Renata Gaston MD [address] [place] [address] Chris@[facility] 02/20/2025 3:00 PM EDT Telemedicine Adult Palliative Care, [address], [place] [address] Annetta Dia, FABI, PhD [address] [place] [address] [place] [address] dyana [email or web address]. Kathe Ferreira MD, MPH [address] [place] [address] [email or web address] documented as of this encounter Visit Diagnoses Not on filedocumented in this encounter Care Teams Glass Sander Relationship Specialty Start Date End Date Yonny Martinez PA [address] [place] [address] PCP - Internal Medicine Physician Continuous Churn Buttermaker 08/01/23 01/20/25 Pcp, Unknown PCP - General 08/04/23 08/20/24 Pcp, Not Required [address] [place] [address] PCP - General 08/21/24 01/20/25 Pcp, Unknown PCP - General 01/21/25 Gustavo Temple MD [address] [place] [address] Joseph@[email or web address] Medical Oncology 08/01/23 Sj Addison MD [address] [place] [phone] Bernadette@[facility] Medical Oncology 09/13/23 Jennifer Suarez RN [address] [place] [address] ELDA@[email or web address] Primary Infusion Nurse 08/30/24 Juany Echeverria, [facility] 300 [place] [address] [email or web address] Director Of Operations Home Health Licensed Clinical Director Of Operations Home Health 09/10/24 Annetta Dia, FABI, PhD [address] [place] [address] [place] [address] krystle [email or web address] Palliative Care 10/03/24 documented as of this encounter Additional Source Comments The information contained in this document represents components of the legal health record. It is not the complete legal health record.[facility]
--- OUTSIDE RECORDS SUMMARY | 2025-01-30 14:31 | XMS_ITS | Encounter Summary ---
Author Organization [facility] Address [address] [place] [address] [place] [address] Phone Care Team Providers Care Household Appliance Repairer Name Role Phone Gustavo Temple MD Unavailable [phone] Yonny Martinez Unavailable Unavailable Sj Addison MD Unavailable [phone] Pcp, Not Required Primary Care Provider Unavaila Jennifer Artis RN Unavailable FILI [email or web address]. Juany Szymanski Unavailable [phone] Annetta Dia PRE SALES ARCHITECT, PhD Unavailable Pcp, Unknown Primary Care Provider Unavailabl e Encounter Details Date Type Department Care Team (Late st Contact Info) Description 10/10/2024 Procedure Pass [facility], [place] [place] 450 [facility], Floor L1 [place] [address] Social History Tobacco Use Types Packs/Day Years [...] high school, GED, job training, learning the Lithuanian language, technical skills, or developing parenting skills)? [...] st Contact Info) Description 10/10/2024 Procedure Pass [place] [address] [address] 10/10/2024 Procedure Pass [place] [address] [address] 02/08/2025 11:30 AM EDT Appointment [facility], Nuclear Medicine [address] [place] [address] Renata Gaston MD [address] [facility]0 [place] [address] Chris@[facility] 02/08/2025 1:30 PM EDT Appointment [place] [address] [address] Renata Gaston MD [address] [place] [address] Chris@[facility] 02/08/2025 2:15 PM EDT Appointment [facility], Nuclear Medicine [address] [place] [address] Renata Gaston MD [address] [place] [address] Chris@[facility] 02/11/2025 1:50 PM EDT Blood Draw Laboratory Services, [facility] [address] [facility], 2nd [place] [address] Renata Gaston MD [address] [place] [address] Chris@[facility] 02/11/2025 3:00 PM EDT Office Visit [facility], [facility] 450 [facility], [address] [address] Wendy Epps MD, MPH 450 [place] [address] ROBIN@[facility] 02/11/2025 3:00 PM EDT Nurse Only [facility]Note 3] for Genitourinary Oncology, [address], [address] [place] [address] Renata Gaston MD [address] [place] [address] Chris@[facility] 02/11/2025 4:00 PM EDT Infusion Infusion Therapy Services [address], [address] [place] [address] Renata Gaston MD [address] [place] [address] Chris@[facility] Jennifer Suarez RN [address] [place] [address] ELDA@ [facility] 02/12/2025 1:00 PM EDT Appointment [facility], Nuclear Medicine [address] [address] Renata Gaston MD [address] [place] [address] Chris@[facility] 02/20/2025 3:00 PM EDT Telemedicine Adult Palliative Care, [address], [address]th [place] [address] Annetta Dia, FABI, PhD [address] [place] [address] [place] [address] dyana [email or web address]. Kathe Ferreira MD, MPH [address] [place] [address] [place] [address] [email or web address] documented as of this encounter Visit Diagnoses Not on filedocumented in this encounter Care Teams Household Appliance Repairer Relationship Specialty Start Date End Date Yonny Martinez PA 140 [place] [address] PCP - Internal Medicine Physician Sales Attendant Building Materials 08/01/23 01/20/25 Pcp, Not Required [address] [place] [address] PCP - General 08/21/24 01/20/25 Pcp, Unknown PCP - General 01/21/25 Gustavo Temple MD [address] [place] [address] Joseph@[email or web address] Medical Oncology 08/01/23 Sj Addison MD [address] [place] [phone] Bernadette@[email or web address] Medical Oncology 09/13/23 Jennifer Suarez RN [address] [place] [address] ELDA@[facility] Primary Infusion Nurse 08/30/24 Juany Echeverria, [facility] 300 [place] [address] [email or web address] Adobe Block Maker Licensed Clinical Adobe Block Maker 09/10/24 Annetta Dia, FABI, PhD [address] [place] [address] [place] [address] annettaDannadylon [email or web address] Palliative Care 10/03/24 documented as of this encounter Additional Source Comments The information contained in this document represents components of the legal health record. It is not the complete legal health record.[facility]
--- OUTSIDE RECORDS SUMMARY | 2025-01-30 14:31 | XMS_ITS ---
Author Organization [facility] Address [address] [place] [address] Care Team Providers Care Mechanical Assembly Technician Name Role Phone Yonny Nolasco Primary Care Provider + Active Problems Problem Noted Date Diagnosed Date Prostate cancer metastatic to bone 08/23/2023 Rectal cancer metastatic to bone 08/10/2023 Current Oncology Plans [facility] BCN LEUPROLIDE 45 MG (ELIGARD) EVERY 6 MONTHS* Plan Start Date:08/23/2023 Plan Provider:Sj Addison MD Linked Problems Prostate cancer metastatic t o bone (HCC) Treatment Medications leuprolide (ELIGARD) Past Plans ONCOLOGY TREATMENT Plan Name Start Date Discontinue Date Treatment Medications Discontinue Reason Plan Provider Cycles [facility] OP DOCETAXEL [id number] (LUNG/BREAST/ TIRE SERVICE SUPERVISOR/PROSTATE CANCERS) 3 HRS 09/15/19 24 02/24/2024 albuterol (PROVENTIL)dexamethasone (DECADRON)dexamethasone sod phosphate PF (DECADRON)diphenhydrAMINE (BENADRYL)DOCEtaxel (TAXOTERE) infusionEPINEPHrinefamoti dine (PF) (PEPCID)hydrocortisone (SOLU-CORTEF) IVmeperidine (DEMEROL) 25 MG/MLprochlorperazine (COMPAZINE)Saline Flush 0.9 %sodium chloride (NS) 0.9 %sodium chloride 0.9% bolus (NS) Therapy Complete Sj Addison MD 8 of 8 cycles started [facility]N OP FOLFOX 6 (MODIFIED) - OXALIPLATIN + LEUCOVORIN + FLUOROURACIL (5 HRS) 08/10/19 24 08/23/2023 albuterol (PROVENTIL)dexamethasone (DECADRON)dextrose 5 %diphenhydrAMINE (BENADRYL)EPINEPHrinefamo tidine (PF) (PEPCID)fluorouracil (5 FU) 46 Hr Chemo infusion- Home Usefluorouracil (ADRUCIL)hydrocortisone (SOLU-CORTEF) IVleucovorin (WELLCOVORIN) infusionmeperidine (DEMEROL) 25 MG/MLoxaliplatin (ELOXATIN) chemo infusionpalonosetron (ALOXI)prochlorperazine (COMPAZINE)Saline Flush 0.9 %sodium chloride (NS) 0.9 %sodium chloride 0.9% bolus (NS) Change in Level of Care Sj Addison MD 1 of 12 cycles started Radiation Treatments * No radiation treatments are documented for this patient in [facility]. Treatments may have been administered in another system.
--- OUTSIDE RECORDS SUMMARY | 2025-01-30 14:31 | XMS_ITS | Encounter Summary ---
Author Organization [facility] Address [address] [place] [address] [place] [address] Phone Care Team Providers Care Field Attendant Name Role Phone Gustavo Temple MD Unavailable [phone] Yonny Martinez Unavailable Unavailable Sj Addison MD Unavailable [phone] Pcp, Not Required Primary Care Provider Unavaila Jennifer Artis RN Unavailable FILI [email or web address]. Juany Szymanski Unavailable [phone] Annetta Dia CIRCUS TRAINER, PhD Unavailable Pcp, Unknown Primary Care Provider Unavailabl e Encounter Details Date Type Department Care Team (Late st Contact Info) Description 10/10/2024 Procedure Pass [facility] Imaging Department, [facility] [place] 450 [facility], Floor L1 [place] [address] Social History Tobacco Use Types Packs/Day Years [...] high school, GED, job training, learning the Yakut language, technical skills, or developing parenting skills)? [...] st Contact Info) Description 10/10/2024 Procedure Pass [place], [place] [address] [address] 10/10/2024 Procedure Pass [place] [address] [address] 02/08/2025 11:30 AM EDT Appointment [facility], Nuclear Medicine [address] [place] [address] Renata Gaston MD [address] [facility] [place] [address] Chris@[facility] 02/08/2025 1:30 PM EDT Appointment [place] [address] [address] Renata Gaston MD [address] [place] [address] Chris@[facility] 02/08/2025 2:15 PM EDT Appointment [facility], Nuclear Medicine [address] [place] [address] Renata Gaston MD [address] [place] [address] Chris@[facility] 02/11/2025 1:50 PM EDT Blood Draw Laboratory Services, [facility] [address] [facility], 2nd [place] [address] Renata Gaston MD [address] [place] [address] Chris@[facility] 02/11/2025 3:00 PM EDT Office Visit [facility], [facility] 450 [facility], 11[place], [place] [address] Wendy Epps MD, MPH 450 [place] [address] ROBIN@[facility] 02/11/2025 3:00 PM EDT Nurse Only [facility] for Genitourinary Oncology, [address], [address] [place] [address] Renata Gaston MD [address] [place] [address] Chris@[facility] 02/11/2025 4:00 PM EDT Infusion Infusion Therapy Services [address] [place] [address], [address] [place] [address] Renata Gaston MD [address] [place] [address] Chris@[facility] Jennifer Suarez RN [address] [place] [address] ELDA@ [facility] 02/12/2025 1:00 PM EDT Appointment [facility], Nuclear Medicine [address] [address] Renata Gaston MD [address] [place] [address] Chris@[facility] 02/20/2025 3:00 PM EDT Telemedicine Adult Palliative Care, [address], [address] [place] [address] Annetta Dia, FABI, PhD [address] [place] [address] [place] [address] dyana [email or web address]. Kathe Ferreira MD, MPH [address] [place] [address] [place] [address] [email or web address] documented as of this encounter Visit Diagnoses Not on filedocumented in this encounter Care Teams Field Attendant Relationship Specialty Start Date End Date Yonyn Martinez PA [address] [place] [address] PCP - Internal Medicine Physician Wall Worker 08/01/23 01/20/25 Pcp, Not Required [address] [place] [address] PCP - General 08/21/24 01/20/25 Pcp, Unknown PCP - General 01/21/25 Gustavo Temple MD [address] [place] [address] Joseph@[facility] Medical Oncology 08/01/23 Sj Addison MD [address] [place] [phone] Bernadette@[email or web address] Medical Oncology 09/13/23 Jennifer Suarez RN [address] [place] [address] ELDA@[facility] Primary Infusion Nurse 08/30/24 Juany Echeverria, [facility] 300 [place] [address] [email or web address] [email or web address] Licensed Clinical Psychodramatist 09/10/24 Annetta Dia, FABI, PhD [address] [place] [address] [place] [address] annettaDannadylon [email or web address] Palliative Care 10/03/24 documented as of this encounter Additional Source Comments The information contained in this document represents components of the legal health record. It is not the complete legal health record.[facility]
--- OUTSIDE RECORDS SUMMARY | 2025-01-30 14:31 | XMS_ITS | Encounter Summary ---
Author Organization [facility] Address [address] [place] [address] [place] [address] Phone Care Team Providers Care Glazier Apprentice Name Role Phone Gustavo Temple MD Unavailable [phone] Yonny Martinez Unavailable Unavailable Pcp, Unknown Primary Care Provider UnavailSj Montenegro MD Unavailable [phone] Pcp, Not Required Primary Care Provider Unavaila Jennifer Artis RN Unavailable FILI [email or web address]. Juany Szymanski FOOD TRAY ASSEMBLER Unavailable [phone] Annetta Dia PHOTOENGRAVER APPRENTICE, PhD Unavailable Pcp, Unknown Primary Care Provider Unavailabl e Encounter Details Date Type Department Care Team (Late st Contact Info) Description 08/10/2024 Procedure Pass [facility], [facility] [place] 450 [facility], [place] [address]1 [place] [address] Social History Tobacco Use Types Packs/Day Years [...] high school, GED, job training, learning the Mohawk language, technical skills, or developing parenting skills)? [...] st Contact Info) Description 10/10/2024 Procedure Pass [place], [place] [address] [address] 10/10/2024 Procedure Pass [place] [address] [address] 02/08/2025 11:30 AM EDT Appointment [facility], Nuclear Medicine [address] [address] Renata Gaston MD [address] [place] [address] Chris@[facility] 02/08/2025 1:30 PM EDT Appointment [facility] [place] 300 [facility] 3rd [place] [address] Renata Gaston MD [address] [place] [address] Chris@[facility] 02/08/2025 2:15 PM EDT Appointment [facility], Nuclear Medicine [address] [address] Renata Gaston MD 450 [facility] [place] [address] [place] [address] Chris@[facility] 02/11/2025 1:50 PM EDT Blood Draw Laboratory Services, [address], 2nd Floor [place], [place] Renata Gaston MD [address] [place] [address] Chris@[facility] 02/11/2025 3:00 PM EDT Office Visit [facility] for Genit[facility], [facility] 450 [facility], 11th [place] [address] Wendy Epps MD, MPH 450 [place] [address] ROBIN@[facility] 02/11/2025 3:00 PM EDT Nurse Only [facility], [address], 11th [place] [address] Renata Gaston MD [address] [place] [address] Chris@[facility] 02/11/2025 4:00 PM EDT Infusion Infusion Therapy Services [facility] [address], [address], [address]th [place] [address] Renata Gaston MD [address] [place] [address] Chris@[facility] Jennifer Suarez RN [address] [place] [address] ELDA@ [facility] 02/12/2025 1:00 PM EDT Appointment [facility], Nuclear Medicine [address] [address] Renata Gaston MD [address] [place] [address] Chris@[facility] 02/20/2025 3:00 PM EDT Telemedicine Adult Palliative Care, [address], [address]th [place] [address] Annetta Dia NP, PhD [address] [place] [address] [place] [address] dyana [email or web address]. Kathe Ferreira MD, MPH [address] [place] [address] [email or web address] documented as of this encounter Visit Diagnoses Not on filedocumented in this encounter Care Teams Glazier Apprentice Relationship Specialty Start Date End Date Yonny Martinez PA [address] [place] [address] PCP - Internal Medicine Physician Cafe Or Restaurant Manager 08/01/23 01/20/25 Pcp, Unknown PCP - General 08/04/23 08/20/24 Pcp, Not Required [address] [place] [address] PCP - General 08/21/24 01/20/25 Pcp, Unknown PCP - General 01/21/25 Gustavo Temple MD [address] [place] [address] Joseph@[facility] Medical Oncology 08/01/23 Sj Addison MD [address] [place] [phone] Bernadette@[facility] Medical Oncology 09/13/23 Jennifer Suarez, JOSEFINA [address] [place] [address] ELDA@[facility] Primary Infusion Nurse 08/30/24 Juany Echeverria, [facility] 300 [place] [address] cookie@[email or web address] Liner Machine Operator Helper Licensed Clinical Liner Machine Operator Helper 09/10/24 Annetta Dia, FABI, PhD [address] [place] [address] [place] [address] krystle [email or web address] 10/03/24 documented as of this encounter Additional Source Comments The information contained in this document represents components of the legal health record. It is not the complete legal health record.[facility]
--- OUTSIDE RECORDS SUMMARY | 2025-01-30 14:31 | XMS_ITS | Encounter Summary ---
Author Organization [facility] Address [address] [place] [address] Phone Care Team Providers Care Track Hoe Operator Name Role Phone Gustavo Temple MD Unavailable Yonny Martinez Unavailable Unavailable Sj Addison MD Unavailable [phone] Pcp, Not Required Primary Care Provider Unavaila Jennifer Artis RN Unavailable FILI [email or web address]. Juany Szymanski Unavailable [phone] Annetta Dia LAYOUT FORMER, PhD Unavailable Pcp, Unknown Primary Care Provider Unavailabl e Encounter Details Date Type Department Care Team (Late st Contact Info) Description 01/02/2025 Orders Only Iraida Lank Imaging Department, [facility] [address] [place] [address] Robert Kowalski, CUSTOMER GREETER 450 [place] [address] maria [email or web address] Prostate cancer (Primary Dx) Social History Tobacco [...] high school, GED, job training, learning the Mauritian language, technical skills, or developing parenting skills)? [...] your housing situation today? I have herber feliz 08/04/2023 How many times have you move [...] st Contact Info) Description 10/10/2024 Procedure Pass [place] [address] [address] 10/10/2024 Procedure Pass [place] [address] [address] 02/08/2025 11:30 AM EDT Appointment [facility], Nuclear Medicine [address] [place] [address] Renata Gaston MD [address] [place] [address] Chris@[facility] 02/08/2025 1:30 PM EDT Appointment [facility], [place] [address] [address] Renata Gaston MD [address] [place] [address] Chris@[facility] 02/08/2025 2:15 PM EDT Appointment [facility], Nuclear Medicine [address] [place] [address] Renata Gaston MD [address] [place] [address] Chris@[facility] 02/11/2025 1:50 PM EDT Blood Draw Laboratory Services, [facility] [address] [facility], 2nd [place] [address] Renata Gaston MD [address] [place] [address] Chris@[facility] 02/11/2025 3:00 PM EDT Office Visit [facility] for Genitourinary Oncology, [facility] 450 [facility], [address] [place] [address] Wendy Epps MD, MPH 450 [place] [address] ROBIN@[facility] 02/11/2025 3:00 PM EDT Nurse Only [facility] for Genitourinary Oncology, [address], [address] [place] [address] Renata Gaston MD [address] [place] [address] Chris@[facility] 02/11/2025 4:00 PM EDT Infusion Infusion Therapy Services [address], [address] [place] [address] Renata Gaston MD [address] [place] [address] Chris@[facility] Jennifer Suarez RN 450 [place], [place] ELDA@ [facility] 02/12/2025 1:00 PM EDT Appointment [facility], Nuclear Medicine [address] [phone] Renata Gaston MD [address] [address] ErikJaylan@[facility] 02/20/2025 3:00 PM EDT Telemedicine Adult Palliative Care, [address], 11th [place] [address] Annetta Dia, LAYOUT FORMER, PhD [address] [place] [address] [place] [address] dyana [email or web address]. Kathe Ferreira MD, MPH [address] [place] [address] [email or web address] documented as of this encounter Visit Diagnoses Diagnosis Prostate cancer- Primary Malignant neoplasm of prostate documented in this encounter Care Teams Track Hoe Operator Relationship Specialty Start Date End Date Yonny Martinez PA [address] [place] [address] PCP - Internal Medicine Physician Auto Mechanics Teacher 08/01/23 01/20/25 Pcp, Not Required [address] [place] [address] PCP - General 08/21/24 01/20/25 Pcp, Unknown PCP - General 01/21/25 Gustavo Temple MD [address] [place] [address] Joseph@[email or web address] Medical Oncology 08/01/23 Sj Addison MD [address] [place] [phone] Bernadette@[email or web address] Medical Oncology 09/13/23 Jennifer Suarez RN [address] [place] [address] ELDA@[facility] Primary Infusion Nurse 08/30/24 Juany Echeverria, [facility] 300 [place] [address] [email or web address] Regional Project Manager Licensed Clinical Regional Project Manager 09/10/24 Annetta Dia NP, PhD [address] [place] [address] [place] [address] krystle [email or web address] Palliative Care 10/03/24 documented as of this encounter Additional Source Comments The information contained in this document represents components of the legal health record. It is not the complete legal health record.[facility]
--- OUTSIDE RECORDS SUMMARY | 2025-01-30 14:31 | XMS_ITS | Encounter Summary ---
Author Organization [facility] Address [address] [place] [address] [place] [address] Phone Care Team Providers Care Fitting Room Attendant Name Role Phone Gustavo Temple MD Unavailable Yonny Martinez Unavailable Unavailable Sj Addison MD Unavailable [phone] Pcp, Not Required Primary Care Provider Unavaila Jennifer Artis RN Unavailable FILI [email or web address]. Juany Szymanski Unavailable [phone] Annetta Dia RANCH HAND SUPERVISOR, PhD Unavailable Pcp, Unknown Primary Care Provider Unavailabl e Reason for Visit * Reason Comments Med Change Request Encounter Details Date Type Department Care Team (Late st Contact Info) Description 11/20/2024 Refill [facility] for Genitourinary On[facility], [facility] 300 [facility] 4th [place] [address] Renata Gaston MD 450 [facility] 1230 [place] [address] [email or web address] .[email or web address] Med Change Request Social History Tobacco Use Types Packs/Day Years [...] high school, GED, job training, learning the Armenian language, technical skills, or developing parenting skills)? [...] st Contact Info) Description 10/10/2024 Procedure Pass [place], [place] [address] [address] 10/10/2024 Procedure Pass [place] [address] [address] 02/08/2025 11:30 AM EDT Appointment [facility], Nuclear Medicine [address] [place] [address] Renata Gaston MD [address] [place] [address] Chris@[facility] 02/08/2025 1:30 PM EDT Appointment [facility], [address] [address] Renata Gaston MD [address] [place] [address] Chris@[facility] 02/08/2025 2:15 PM EDT Appointment [facility], Nuclear Medicine [address] [place] [address] Renata Gaston MD [address] DA [facility] [place] [address] Chris@[facility] 02/11/2025 1:50 PM EDT Blood Draw Laboratory Services, [address], 2nd [place], [place] Renata Gaston MD 450 [facility] 1230 [place] [address] Chris@[facility] 02/11/2025 3:00 PM EDT Office Visit [facility] for Genitourinary Oncology, [address], [address], [place] [address] Wendy Epps MD, MPH 450 [place] [address] ROBIN@[facility] 02/11/2025 3:00 PM EDT Nurse Only [facility] for Genitourinary Oncology, [address], [address] [place] [address] Renata Gasotn MD [address] [place] [address] Chris@[facility] 02/11/2025 4:00 PM EDT Infusion Infusion Therapy Services [address], 11th [place] [address] Renata Gaston MD [address] [place] [address] Chris@[facility] Jennifer Suarez RN 450 [place], [place] ELDA@ [facility] 02/12/2025 1:00 PM EDT Appointment [facility], Nuclear Medicine [address] [address] Renata Gaston MD [address] [address] Chris@[facility] 02/20/2025 3:00 PM EDT Telemedicine Adult Palliative Care, [address], 11th [place] [address] Annetta Dia, FABI, PhD [address] [place] [address] [place] [address] dyana [email or web address]. Kathe Ferreira MD, MPH [address] [place] [address] [email or web address] documented as of this encounter Visit Diagnoses Not on filedocumented in this encounter Care Teams Fitting Room Attendant Relationship Specialty Start Date End Date Yonny Martinez PA [address] [place] [address] PCP - Internal Medicine Physician Activities Assistant 08/01/23 01/20/25 Pcp, Not Required [address] [place] [address] PCP - General 08/21/24 01/20/25 Pcp, Unknown PCP - General 01/21/25 Gustavo Temple MD [address] [place] [address] Joseph@[facility] Medical Oncology 08/01/23 Sj Addison MD [address] [place] [phone] Bernadette@[email or web address] Medical Oncology 09/13/23 Jennifer Suarez RN [address] [place] [address] ELDA@[facility] Primary Infusion Nurse 08/30/24 Juany Echeverria, [facility] 300 [place] [address] [email or web address] Apprentice Painter Neckties Licensed Clinical Apprentice Painter Neckties 09/10/24 Annetta Dia NP, PhD [address] [place] [address] [place] [address] krystle [email or web address]@[facility] Palliative Care 10/03/24 documented as of this encounter Additional Source Comments The information contained in this document represents components of the legal health record. It is not the complete legal health record.[facility]
--- OUTSIDE RECORDS SUMMARY | 2025-01-30 14:32 | XMS_ITS | Encounter Summary ---
Author Organization [facility] Address [address] [place] [address] [place] [address] Phone Care Team Providers Care Statement Clerks Manager Name Role Phone Gustavo Temple MD Unavailable [phone] Yonny Martinez Unavailable Unavailable Pcp, Unknown Primary Care Provider UnavailSj Montenegro MD Unavailable [phone] Pcp, Not Required Primary Care Provider Unavaila Jennifer Artis RN Unavailable FILI [email or web address]. Juany Szymanski [facility] Unavailable [phone] Annetta Dia BLOCK HANDLER, PhD Unavailable Pcp, Unknown Primary Care Provider Unavailabl e Encounter Details Date Type Department Care Team (Late st Contact Info) Description 06/28/2024 Procedure Pass [facility] Cross Sectional Interventional Radiology [address] [place] [address] Social History Tobacco Use Types Packs/Day Years [...] high school, GED, job training, learning the Tamazight language, technical skills, or developing parenting skills)? [...] st Contact Info) Description 10/10/2024 Procedure Pass [place] [address] [address] 10/10/2024 Procedure Pass [place] [address] [address] 02/08/2025 11:30 AM EDT Appointment [facility], Nuclear Medicine [address] [address] Renata Gaston MD [address] [place] [address] Chris@[facility] 02/08/2025 1:30 PM EDT Appointment [facility] [place] [address] [address] Renata Gaston MD 450 [facility] [address] [place] [address] Chris@[facility] 02/08/2025 2:15 PM EDT Appointment [facility], Nuclear Medicine [address] [address] Renata Gaston MD 450 [facility] 1230 [place] [address] Chris@[facility] 02/11/2025 1:50 PM EDT Blood Draw Laboratory Services, [address], 2nd [place] [address] Renata Gasotn MD 450 [facility] [address] [place] [address] Chris@[facility] 02/11/2025 3:00 PM EDT Office Visit [facility] for Genitourinary Oncology, [address], 11th [place] [address] Wendy Epps MD, MPH 450 [place] [address] ROBIN@[facility] 02/11/2025 3:00 PM EDT Nurse Only [facility] for Genitourinary Oncology, [address] Center, [address] [place] [address] Renata Gaston MD [address] [place] [address] Chris@[facility] 02/11/2025 4:00 PM EDT Infusion Infusion Therapy Services [facility] [address], [address], [place] [address] Renata Gaston MD [address] [place] [address] Chris@[facility] Jennifer Suarez RN [address] [place] [address] ELDA@ [facility] 02/12/2025 1:00 PM EDT Appointment [facility], Nuclear Medicine [address] [address] Renata Gaston MD [address] [place] [address] Chris@[facility] 02/20/2025 3:00 PM EDT Telemedicine Adult Palliative Care, [address], [place] [address] Annetta Dia NP, PhD [address] [place] [address] [place] [address] dyana [email or web address]. Kathe Ferreira MD, MPH [address] [place] [address] [email or web address] documented as of this encounter Visit Diagnoses Not on filedocumented in this encounter Care Teams Statement Clerks Manager Relationship Specialty Start Date End Date Yonny Martinez PA [address] [place] [address] PCP - Internal Medicine Physician Computer Technical Support Specialist 08/01/23 01/20/25 Pcp, Unknown PCP - General 08/04/23 08/20/24 Pcp, Not Required [address] [place] [address] PCP - General 08/21/24 01/20/25 Pcp, Unknown PCP - General 01/21/25 Gustavo Temple MD [address] [place] [address] Joseph@[facility] Medical Oncology 08/01/23 Sj Addison MD [address] [place] [phone] Bernadette@[facility] Medical Oncology 09/13/23 Jennifer Suarez RN [address] [place] [address] ELDA@[facility] Primary Infusion Nurse 08/30/24 Juany Echeverria, [facility] 300 [place] [address] [email or web address] Cell Stripper Licensed Clinical Cell Stripper 09/10/24 Annetta Dia, FABI, PhD [address] [place] [address] [place] [address] krystle [email or web address] Palliative Care 10/03/24 documented as of this encounter Additional Source Comments The information contained in this document represents components of the legal health record. It is not the complete legal health record.[facility]
--- OUTSIDE RECORDS SUMMARY | 2025-01-30 14:32 | XMS_ITS | Clinical Summary ---
Author Organization [facility] Address [address] [place] [phone] Phone Care Team Providers Care Licensed Vocational Nurse Name Role Phone Gustavo Temple MD Unavailable [phone] Sj Addison MD Unavailable [phone] Jennifer Suarez RN Unavailable FILI [email or web address] Szymanski BOARD CERTIFIED MUSIC THERAPIST Unavailable Annetta Dia DIVISION ROADMASTER, PhD Unavailable Pcp, Unknown Primary Care Provider Unavailabl e Allergies Active Allergy Reactions Criticality Noted Date Comments Morphine Nausea and/or Vomiting 08/09/2024 Oxycodone Nausea and/or Vomiting 08/09/2024 Medications atorvastatin (LIPITOR) 20 MG tablet Take 20 mg by mouth daily. Active hydroCHLOROthiazid e 25 MG tablet Take 25 mg by mouth daily. Active labetaloL (TRANDATE) 200 MG tablet Take 200 mg by mouth 2 (two) times a day. Active insulin glargine (LANTUS) 100 unit/mL injection vial Inject 16 Units under the skin nightly at bedtime. Active lisinopril (PRINIVIL,ZESTRIL) 40 MG tablet Take 40 mg by mouth daily. Active metFORMIN (GLUCOPHAGE-XR) 500 MG 24 hr tablet TAKE 2 TABLETS BY MOUTH TWICE A DAY TAKE WITH FOOD 02/08/20 24 Active ondansetron (ZOFRAN-ODT) 4 MG disintegrating tablet Take 4 mg by mouth every 8 (eight) hours as needed. 05/23/19 25 Active dulaglutide (TRULICITY) 3 mg/0.5 mL subcutaneous injection Inject 3 mg under the skin every 7 days. Active naloxone (NARCAN) 4 mg/actuation nasal sprayIndications:C hronic, continuous use of opioids 1 spray by Intranasal route once for 1 dose. After one (1) spray, call 911. If no response in 3-5 minutes, repeat with second nasal spray. 1 each 08/10/19 25 Active dexAMETHasone (DECADRON) 2 MG tablet Take 2 tablets (4 mg total) by mouth daily with breakfast. 60 tablet 08/31/19 25 Active Additional Information Patient not taking.Reported on 11/14/2024 polyethylene glycol (MIRALAX) 17 gram/dose powder Take 17 g by mouth daily as needed for mild constipation. Active ferrous sulfate 325 mg (65 mg [place] iron) tablet Take 1 tablet by mouth every other day with food. 30 tablet 2 11/21/19 25 Active fentaNYL (DURAGESIC) 25 mcg/hrIndications: Cancer related pain Place 1 patch onto the skin every third day. CancerPain-part ial fill ok 10 patch 01/12/20 25 025 Active blood pressure monitor (BLOOD PRESSURE KIT) KitIndications:Pro state cancer,Type 2 diabetes mellitus with hyperglycemia, with long-term current use of insulin,Primary hypertension Measure once daily and let PCP know if >140/90 consistently. 1 kit 01/22/20 25 Active prochlorperazine (COMPAZINE) 10 MG tablet Take 1 tablet (10 mg total) by mouth every 6 (six) hours as needed (nausea). 30 tablet 1 01/22/20 25 Active prochlorperazine (COMPAZINE) 10 MG tablet Take 1 tablet (10 mg total) by mouth every 6 (six) hours as needed (nausea). 30 tablet 1 09/22/19 25 025 Discontin ued(Reord er) fentaNYL (DURAGESIC) 25 mcg/hrIndications: Cancer related pain Place 1 patch onto the skin every third day. CancerPain-part ial fill ok 10 patch 12/08/19 25 025 Discontin ued(Reord er) Active Problems Patient Care Coordination No te Formatting of this note is d ifferent from the original. ALERT: 01/02/25 : received C4 Pluvicto on Protocol [id number] . May refer to Clinical Care of Patients Receiving Radioactive Materials in Ellucid Problem Noted Date Diagnosed Date Iron deficiency anemia meghna wallace to inadequate dietary iron intake 08/30/2024 Prostate cancer 09/12/2023 Encounters Date Type Department Care Team Description 01/25/2025 Orders Only [facility], [address], [address] [place] [address] Wendy Epps MD, MPH Prostate cancer (Primary Dx) 01/22/2025 Telephone [facility] Genitourinary Oncology, [address], [address] [place] [phone] Esther Man RN 01/21/2025 11:30 AM EDT Infusion Infusion Therapy Services [facility] at [address] [address] Renata Gaston MD Leland, Shelby Chase, JOSEFINA Prostate cancer (Primary Dx) 01/21/2025 10:30 AM EDT Nurse Only [facility] Genitourinary Oncology, [facility] at [address] [address] Renata Gaston MD Kelleher, Kaitlin M RN 01/21/2025 10:30 AM EDT Office Visit [facility] Genitourinary Oncology, [facility] at [address] [address] Skylar Sood PA-C Prostate cancer (Primary Dx); Type 2 diabetes mellitus with hyperglycemia, with long-term current use of insulin; Primary hypertension 01/21/2025 Documentation [facility] Genitourinary Oncology, [address], [address] [place] [address] Esther Man RN 01/18/2025 Telephone [facility], [facility] [place] [address] [address] Melody Rollins, JOSEFINA 01/11/2025 Orders Only Adult Palliative Care, [facility] [address] [facility], [address] [place] [address] Marianne Maldonado, SHAINA Cancer related pain 01/11/2025 Telephone [facility], [facility] [address] [facility], [address] [place] [address] Patria Mcallister, JOSEFINA 01/08/2025 Telephone [facility], [address], [address] [place] [address] Skylar Sood PA-C 01/03/2025 8:00 AM EDT - 01/03/2025 11:59 PM EDT Hospital Encounter [facility], Nuclear Medicine [address] [place] [address] Skylar Sood PA-C Morgans, Alicia Katherine, MD, MPH Discharge Disposition: Home or Self Care 01/02/2025 1:00 PM EDT - 01/02/2025 11:59 PM EDT Hospital Encounter [facility], Nuclear Medicine [address] [address] Renata Gaston MD Discharge Disposition: Home or Self Care 01/02/2025 Orders Only Ira[facility] Megan Imaging Department, [facility], Imaging Clinic [address] [place] [address] Robert Kowalski, AMBULETTE DRIVER Prostate cancer (Primary Dx) 01/02/2025 Orders Only [facility], [address], [address] [place] [address] Skylar Sood PA-C Prostate cancer (Primary Dx) 01/01/2025 4:30 PM EDT Infusion Infusion Therapy Services [facility] at [address] [address] Renata Gaston MD Benoit, Stephanie Ann, JOSEFINA Prostate cancer (Primary Dx) 01/01/2025 3:30 PM EDT Nurse Only [facility], [facility] at [address] [address] Renata Gaston MD Kabarame, Liliane, RN 01/01/2025 3:30 PM EDT Office Visit [facility], [facility] at [address] [address] Skylar Sood PA-C Prostate cancer (Primary Dx) 12/31/2024 Orders Only [facility], [address], [address] [place] [address] Skylar Sood PA-C Type 2 diabetes mellitus with hyperglycemia, with long-term current use of insulin (Primary Dx) 12/18/2024 Orders Only [facility], [address], [address] [place] [address] Renata Gaston MD Prostate cancer (Primary Dx) 12/12/2024 3:30 PM EDT Infusion Infusion Therapy Services [facility] at [address] [address] Renata Gaston MD Casadonte, Laura, JOSEFINA Prostate cancer (Primary Dx) 12/12/2024 2:30 PM EDT Nurse Only [facility], [facility] at [address] [address] Renata Gaston MD Tresvant, Justine, RN 12/12/2024 2:30 PM EDT Office Visit [facility] for [facility] On[facility], [facility] at [address] [address] Holli Jain PA-C Hypertension, unspecified type (Primary Dx) 12/07/2024 Orders Only Adult Palliative Care, [address], [address] [place] [address] Marianne Maldonado, SHAINA Cancer related pain 11/21/2024 9:00 AM EDT - 11/21/2024 11:59 PM EDT Hospital Encounter [facility], Nuclear Medicine [address] [place] [address] Renata Gaston MD Discharge Disposition: Home or Self Care 11/20/2024 1:00 PM EDT Infusion Infusion Therapy Services [facility] at [address] [address] Renata Gaston MD Debonee, Amanda Mae, JOSEFINA Prostate cancer (Primary Dx) 11/20/2024 12:00 PM EDT Nurse Only [facility], [facility] at [address] [address] Renata Gaston MD Tresvant, Justine, JOSEFINA 11/20/2024 12:00 PM EDT Office Visit [facility], [facility] at [address] [address] Renata Gaston MD Prostate cancer (Primary Dx); Iron deficiency anemia secondary to inadequate dietary iron intake 11/20/2024 Refill [facility] Gen[facility] On[facility], [facility] at [address] [address] Renata Gaston MD Med Change Request 11/15/2024 [facility] for Gen[facility] On[facility], [facility] [address] [facility], 11th [place] [address] Patria Mcallister RN 11/14/2024 11:33 AM EDT - 11/14/2024 11:59 PM EDT Hospital Encounter [facility] Cross Sectional Interventional Radiology [address] [place] [address] Renata Gaston MD Dillon, Joseph P, RN Mandell, MD Teri Boyer Miguel A, MD [place], Titus Octaviano, [place] Discharge Disposition: Home or Self Care 11/08/2024 12:22 PM EDT - 11/08/2024 11:59 PM EDT Hospital Encounter [facility], [facility], Nuclear Medicine 450 [facility], [facility] [address] [place] [address] Renata Gaston MD Discharge Disposition: Home or Self Care 11/08/2024 11:07 AM EDT - 11/08/2024 12:21 PM EDT Hospital Encounter [facility], [facility], [place] 450 [facility], [facility] [address] [place] [address] Renata Gaston MD Discharge Disposition: Home or Self Care 11/08/2024 10:47 AM EDT - 11/08/2024 11:06 AM EDT Hospital Encounter [facility], [facility], PET/CT 450 [place] [address] Skylar Sood PA-C Ravi, Praful K, [facility] Discharge Disposition: Home or Self Care 11/08/2024 10:44 AM EDT - 11/08/2024 10:46 AM EDT Hospital Encounter [facility], [facility], Nuclear Medicine 450 [facility], [address] [place] [address] Renata Gaston MD Discharge Disposition: Home or Self Care 11/02/2024 Telephone [facility] for Genitour[facility] Oncology, [facility] [place] [address] [facility], 11th [place] [address] Patria Mcallister, RN 10/30/2024 3:00 PM EDT Infusion Infusion Therapy Services [facility] at [address] [address] Renata Gaston MD Villareal, Madeline, JOSEFINA Prostate cancer (Primary Dx) 10/30/2024 2:00 PM EDT Nurse Only [facility] Genitourinary Oncology, [facility] at [address] [address] Renata Gaston MD Kelleher, Kaitlin M, RN 10/30/2024 2:00 PM EDT Office Visit [facility] Genitourinary Oncology, [facility] at [address] [address] Renata Gaston MD Prostate cancer (Primary Dx) 10/17/2024 Procedure Pass [facility] Cross Sectional Interventional Radiology [address] [place] [address] 10/10/2024 Procedure Pass [facility], [facility], [place] 450 [facility], [place] [address] [place] [address] 10/10/2024 Procedure Pass [facility], [facility], [place] 450 [facility], [address] [place] [address] from Last 3 Months Social History Tobacco Use Types Packs/Day Years [...] high school, GED, job training, learning the [place]ese language, technical skills, or developing parenting skills)? [...] Orientation Straight 07/29/2023 11 :41 AM EDT Last Filed Vital Signs Vital Sign Reading Time Taken Comments Blood Pressure 140/84 01/21/2025 10:19 AM EDT Pulse 101 01/21/2025 10:19 AM EDT Temperature 36.4 C (97.6 F) 01/21/2025 10:19 AM EDT Respiratory Rate 18 01/21/2025 10:1 9 AM EDT Oxygen Saturation 98% 01/21/2025 10: 19 AM EDT Inhaled Oxygen Concentration - - Weight 131.7 kg (290 lb 5.5 oz) 025 10:19 AM EDT Height 183.1 cm (6' 0.09 ) 08/30/2024 9:37 AM ED T Body Mass Index 39.28 08/30/2024 9:37 AM EDT Plan of Treatment Upcoming Encounters Date Type Department Care Team (Late st Contact Info) Description 10/10/2024 Procedure Pass [address] [address] 10/10/2024 Procedure Pass [address] [address] 02/08/2025 11:30 AM EDT Appointment [facility], Nuclear Medicine [address] [place] [address] Renata Gaston MD 450 [employer] [address] [place] [phone] [email or web address] 02/08/2025 1:30 PM EDT Appointment [address] [address] Renata Gaston MD [address] [employer] [address] [place] [phone] [email or web address] IN[facility]ES [facility] 02/08/2025 2:15 PM EDT Appointment [facility], Nuclear Medicine [address] [place] [address] Renata Gaston MD 450 [facility] [address] [place] [address] [email or web address]@[facility] INCLUDES [facility] 02/11/2025 1:50 PM EDT Blood Draw Laboratory Services, [facility] [address] [facility], 2nd Floor [place], [place] Renata Gaston MD 450 [facility] [address] [place] [address] [email or web address]@COUNT INCLUDES [facility] 02/11/2025 3:00 PM EDT Office Visit [facility], [address], [address] [place] [address] Wendy Epps MD, MPH [address] [place] [phone] [email or web address] 02/11/2025 3:00 PM EDT Nurse Only [facility] for Genitourinary Oncology, [address], [address] [place] [address] Renata Gaston MD [address] [address] Chris@COUNT INCLUDES [facility] 02/11/2025 4:00 PM EDT Infusion Infusion Therapy Services [facility], [address], [address] [place] [address] Renata Gaston MD [address] [phone] [email or web address] INCLUDES [facility] Jennifer Suarez RN 450 [place] [address] [email or web address] 02/12/2025 1:00 PM EDT Appointment [facility], Nuclear Medicine 300 [facility] 3rd [place] [address] Renata Gaston MD [address] [place] [address] 1230 [place] [address] [email or web address] INCLUDES [facility] 02/20/2025 3:00 PM EDT Telemedicine Adult Palliative Care, [address], [address] [place] [address] Annetta Dia NP, PhD [address] [place] [address] [place] [address] [email or web address] Kathe Ferreira MD, MPH [address] [place] [address] [email or web address] Health Maintenance Due Date Last Done Comments Adult Td,Tdap Booster 1977 DEPRESSION SCREENING 1989 SMOKING Hx and SMOKELESS TOBACCO SCREENING 1990 HEPATITIS C SCREENING 1995 HIV ONE-TIME SCREENING (18-65 YEARS) 1995 PNEUMOCOCCAL VACCINES (0-49 years) (1 of 2 - PCV) 02/03/1996 COLOGUARD 2022 COLONOSCOPY 2022 COLORECTAL CANCER SCREENING 2022 FIT TEST 2022 FOBT 2022 SIGMOIDOSCOPY 2022 VIRTUAL COLONOSCOPY 2022 DIABETIC EYE EXAM 10/09/2024 INFLUENZA VACCINE (#1) 2024 2, 02/27/2021, 02/07/2020, Additional history exists COVID-19 VACCINE ( season) 2025 HEMOGLOBIN A1C 04/03/2025 01/01/2025, 0507/2024, 03/29/2024 BLOOD PRESSURE 07/21/2025 01/21/2025 CREATININE LEVEL 01/21/2026 01/21/2025, , 12/12/2024, Additional history exists POTASSIUM LEVEL 01/21/2026 01/21/2025, 12/08, 12/12/2024, Additional history exists HEPATITIS A VACCINES Aged Out No long er eligible based on patient's age to complete this topic HIB VACCINES Aged Out No longer eligi ble based on patient's age to complete this topic MENINGOCOCCAL VACCINES (ACWY) Aged Out No longer eligible based on patient's age to complete this topic MENINGOCOCCAL VACCINES (B) Aged Out N o longer eligible based on patient's age to complete this topic Medical Devices Not on file Procedures Procedure Name Priority Date/Time Associated Diagnosis Comments COMPREHENSIVE METABOLIC PANEL Routine 01/21/2025 10:05 AM EDT Prostate cancer HC BLOOD COUNT COMPLETE AUTO&AUTO DIFRNTL WBC Routine 01/21/2025 10:05 AM EDT Prostate cancer NM SPECT/CT POST THERAPY MULTIPLE AREA/MULTIPLE DAY Routine 01/03/2025 9:12 AM EDT Prostate cancer NM NUCLEAR MEDICINE RADIONUCLIDE THERAPY OTHER Routine 01/02/2025 2:38 PM EDT Prostate cancer HEMOGLOBIN A1C, [place] SENDOUT Routine 01/01/2025 3:16 PM EDT Type 2 diabetes mellitus with hyperglycemia, with long-term current use of insulin X-LABEL/STUDY Routine 01/01/2025 3:16 PM EDT Prostate cancer TESTOSTERONE, TOTAL Routine 01/01/2025 3 :16 PM EDT Prostate cancer PSA DIAGNOSTIC (MONITORING) Routine 01/01/2025 3:16 PM EDT Prostate cancer COMPREHENSIVE METABOLIC PANEL Routine 01/01/2025 3:16 PM EDT Prostate cancer HC BLOOD COUNT COMPLETE AUTO&AUTO DIFRNTL WBC Routine 01/01/2025 3:16 PM EDT Prostate cancer X-LABEL/STUDY Routine 01/01/2025 3:16 PM EDT Prostate cancer COMPREHENSIVE METABOLIC PANEL Routine 12/12/2024 1:24 PM EDT Prostate cancer HC BLOOD COUNT COMPLETE AUTO&AUTO DIFRNTL WBC Routine 12/12/2024 1:24 PM EDT Prostate cancer NM NUCLEAR MEDICINE RADIONUCLIDE THERAPY OTHER Routine 11/21/2024 11:33 AM EDT Prostate cancer LAB ADD ON Routine 11/20/2024 12:57 PM EDT Prostate cancer Iron deficiency anemia secondary to inadequate dietary iron intake IRON AND IRON BINDING CAPACITY Routine 11/20/2024 11:48 AM EDT FERRITIN Routine 11/20/2024 11:48 AM EDT X-LABEL/STUDY Routine 11/20/2024 11:48 AM EDT Malignant neoplasm of prostate TESTOSTERONE, TOTAL Routine 11/20/2024 1 1:48 AM EDT Prostate cancer PSA DIAGNOSTIC (MONITORING) Routine 11/20/2024 11:48 AM EDT Prostate cancer COMPREHENSIVE METABOLIC PANEL Routine 11/20/2024 11:48 AM EDT Prostate cancer HC BLOOD COUNT COMPLETE AUTO&AUTO DIFRNTL WBC Routine 11/20/2024 11:48 AM EDT Prostate cancer X-LABEL/STUDY Routine 11/20/2024 11:48 AM EDT Prostate cancer IR BIOPSY Routine 11/14/2024 2:46 PM EDT Prostate cancer PET/CT BODY OTHER/RESEARCH Routine 11/08/2024 4:46 PM EDT Prostate cancer NM BONE SCAN WHOLE BODY Routine 11/08/2024 2:29 [address] ABDOMEN/PELVIS WITH CONTRAST Routine 11/08/2024 11:22 [address] EDT [address] CHEST WITH CONTRAST Routine 11:22 AM EDT Prostate cancer LAB ADD ON Routine 10/30/2024 2:57 PM EDT Prostate cancer PSA DIAGNOSTIC (MONITORING) Routine 10/30/2024 1:31 PM EDT COMPREHENSIVE METABOLIC PANEL Routine 10/30/2024 1:31 PM EDT Prostate cancer HC BLOOD COUNT COMPLETE AUTO&AUTO DIFRNTL WBC Routine 10/30/2024 1:31 PM EDT Prostate cancer from Last 3 Months Results * (ABNORMAL) Comprehensive metabolic panel (01/21/2025 10:05 AM EDT) Only the most recent of5 resultswithin the time period is included. SODIUM 136 136 - 145 mmol/L [facility] POTASSIUM 4.2 3.4 - 5.1 mmol/L [facility] CHLORIDE 102 98 - 107 mmol/L [facility] CO2 21(L) 22 - 31 mmol/L [facility] BUN 12 6 - 23 mg/dL [facility] CREATININE 0.83 0.50 - 1.20 mg/dL [facility] GLUCOSE 321(H) 70 - 100 mg/dL [facility] ALBUMIN 4.0 3.5 - 5.2 g/dL [facility] TOTAL PROTEIN 6.7 6.4 - 8.3 g/dL [facility] CALCIUM 9.1 8.8 - 10.7 mg/dL [facility] ALKALINE PHOSPHATASE 236(H) 40 - 129 U/L [facility] TOTAL BILIRUBIN 0.6 0.2 - 1.2 mg/dL [facility] AST 22 <41 U/L [facility] ALT 26 <42 U/L [facility] GLOBULIN 2.7 2.3 - 4.2 g/dL [facility] EGFR 109 >59 mL/min/1.7 3m2 [facility] Comment:Estimated glomerular filtration rate calculated using the CKD-EPI refit equation. ANION GAP 13 7 - 17 mmol/L [facility] Blood 01/21/2025 10:0 5 AM EDT 01/21/2025 10:07 AM EDT us Renata Gaston MD LAB BLOOD ORDERABLES Final Resu lt [facility] [address] [place] [address], [facility] * (ABNORMAL) CBC and differential (01/21/2025 10:05 AM EDT) Only the most recent of5 resultswithin the time period is included. WBC 4.31 4.00 - 10.00 K/uL [facility] RBC 3.41(L) 4.50 - 6.40 M/uL [facility] HGB 9.6(L) 13.5 - 18.0 g/dL [facility] HCT 27.9(L) 40.0 - 54.0 % [facility] PLT 173 150 - 450 K/uL [facility] MCV 81.8 80.0 - 100.0 fL [facility] MCH 28.2 27.0 - 32.0 pg [facility] MCHC 34.4 32.0 - 36.0 g/dL [facility] RDW 14.7(H) 11.5 - 14.5 % [facility] MPV 9.0 8.4 - 12.0 fL [facility] NRBC 0.00 0.00 /100 WBCs [facility] ABSOLUTE NRBC 0.00 0 K/uL [facility] DIFF METHOD Auto [facility] NEUTS 78.4(H) 48.0 - 76.0 % [facility] LYMPHS 11.1(L) 18.0 - 41.0 % [facility] MONOS 9.3 4.0 - 11.0 % [facility] EOS 0.0 0.0 - 5.0 % [facility] BASOS 0.5 0.00 - 1.50 % [facility] % IMMATURE GRANS 0.7 0.00 - 1.00 % [facility] ABSOLUTE NEUTS 3.38 1.92 - 7.60 K/uL [facility] ABSOLUTE LYMPHS 0.48(L) 0.72 - 4.10 K/uL [facility] ABSOLUTE MONOS 0.40 0.16 - 1.10 K/uL [facility] ABSOLUTE EOS 0.00 0.00 - 0.50 K/uL [facility] ABSOLUTE BASOS 0.02 0.00 - 0.15 K/uL [facility] ABS IMMATURE GRANS 0.03 0.00 - 0.10 K/uL [facility] Blood 01/21/2025 10:0 5 AM EDT 01/21/2025 10:07 AM EDT us Renata aGston MD LAB BLOOD ORDERABLES Final Resu lt [facility] [address] [place] [address], [facility] * NM SPECT/CT POST THERAPY MULTIPLE AREA/MULTIPLE DAY (01/03/2025 9:12 AM EDT) Anatomical Region Laterality Modality Head, Abdomen, Chest [facility] Other 01/04/2025 5:03 PM EDT Impressions 01/04/2025 8:38 PM EDT Uptake along multifocal sites of osseous metastatic disease with overall decreased intensity along numerous areas compared to prior PET/CT from 11/08/2024 At several levels in the mid thoracic spine, there is question if uptake extends along adjacent soft tissue the spinal canal and right-sided neural foramen however blooming artifact limits exact anatomic assessment.. This can be correlated with location of patient back pain, and can be further assessed anatomic with MRI if indicated. Uptake along the prostate and infradiaphragmatic nodes also appears decreased; evaluation of small nodes limited due to technical factors. Narrative 01/04/2025 8:38 PM EDT Reason for exam (per EHR order): Research Study Additional clinical information obtained from the EHR: 49-year-old male. Metastatic castration-resistant prostate cancer. Presents for imaging following injection #[id number] tetraxetan (Pluvicto) on [facility] clinical trial [id number] secondary to increasing back pain. TECHNIQUE: Approximately 18 hours after therapy injection, patient returned for SPECT-CT imaging performed from the base of the skull through the mid thighs. COMPARISON: [facility] PET/CT 11/08/2024 FINDINGS: There is multifocal areas of increased uptake along the axial and proximal appendicular skeleton. There is overall similar distribution to prior [facility] scan from 11/08/2024 with several areas appearing less avid than previously including multiple levels throughout the thoracolumbar spine thoracolumbar spine. Along the left aspect of the T6 vertebral level, image [id number] along the posterior elements at the T5 level, image 37, uptake appears to extend along the posterior spinal canal and in the region of the right T4 neural foramen on image 32. These areas also demonstrate intense uptake on prior PET/CT. No definite new areas of abnormal uptake. No new vertebral body compression deformity. There is persistent uptake in the region of the prostate, limitedly assessed due to intense excreted tracer along the adjacent bladder. Uptake is again noted along several nodes including on image 103 along proximal left common iliac chain node Low-dose CT images otherwise demonstrate a right internal jugular port with tip in the right atrium. Diffuse hepatic steatosis. Left lower quadrant ostomy with large parastomal hernia containing portions of small bowel without dilatation to suggest a functional obstruction. Procedure Note Les Her MD - 01/04/2025 Reason for exam (per EHR order): Research Study Additional clinical information obtained from the EHR: 49-year-old male.Metastatic castration-resistant prostate cancer. Presents for imagingfollowing injection #4of Uk180-jtscgzyvlj tetraxetan (Pluvicto) on [facility] trial 23-693 secondary to increasing back pain. TECHNIQUE: Approximately 18 hours after therapy injection, patient returned forSPECT-CT imaging performed from the base of the skull through the midthighs. COMPARISON: PSMA PET/CT 11/08/2024 FINDINGS: There is multifocal areas of increased uptake along the axial and proximalappendicular skeleton. There is overall similar distribution to prior PSMAscan from 11/08/2024 with several areas appearing less avid than previouslyincluding multiple levels throughout the thoracolumbar spine thoracolumbarspine. Along the left aspect of the T6 vertebral level, image 42-40 alongthe posterior elements at the T5 level, image 37, uptake appears to extendalong the posterior spinal canal and in the region of the right T4 neuralforamen on image 32. These areas also demonstrate intense uptake on priorPET/CT. No definite new areas of abnormal uptake. No new vertebral bodycompression deformity. There is persistent uptake in the region of the prostate, limitedlyassessed due to intense excreted tracer along the adjacent bladder. Uptakeis again noted along several nodes including on image 103 along proximalleft common iliac chain node Low-dose CT images otherwise demonstrate a right internal jugular portwith tip in the right atrium. Diffuse hepatic steatosis. Left lowerquadrant ostomy with large parastomal hernia containing portions of smallbowel without dilatation to suggest a functional obstruction. IMPRESSION: Uptake along multifocal sites of osseous metastatic disease with overalldecreased intensity along numerous areas compared to prior PET/CT from11/08/2024 At several levels in the mid thoracic spine, there is question if uptakeextends along adjacent soft tissue the spinal canal and right-sided neuralforamen however blooming artifact limits exact anatomic assessment.. Thiscan be correlated with location of patient back pain, and can be furtherassessed anatomic with MRI if indicated. Uptake along the prostate and infradiaphragmatic nodes also appearsdecreased; evaluation of small nodes limited due to technical factors. us Skylar Sood PA-C IMG NM PET Fin al Result * NM Nuclear Medicine Radionuclide Therapy ??? Other (01/02/2025 2:38 PM EDT) Anatomical Region Laterality Modality Nuclear Medicine Other 01/02/2025 8:39 PM EDT Impressions 01/03/2025 9:46 AM EDT 1. Intravenous injection #4 of Ss770-xpmfdxeksn tetraxetan (Pluvicto) per protocol 23-693.. Narrative 01/03/2025 9:46 AM EDT Reason for exam (per EHR order): Research Study Additional clinical information obtained from the EHR: 49 -year-old Male Metastatic castration resistant prostate cancer. Presents for injection #4 of Oe217-xuxvfjcsqt tetraxetan (Pluvicto) per protocol 23-693. TECHNIQUE: Radiopharmaceutical: Ie230-gcldkalqcr tetraxetan (Pluvicto). Dose: 200.32 mCi. Procedure: A catheter was placed in the left antecubital fossa. Prior to the injection of Zx698-hatlrqdaeu tetraxetan, a time-out was performed, and IV patency was observed. Ql533-zfudlqxrek tetraxetan was administered over 13 minutes via IV infusion pump followed by saline flush. FINDINGS: Patient tolerated the infusion well without specific complaint Prior to discharge from Nuclear Medicine, dose rate at 1 meter was 1.87 mR/hr. Procedure Note Les Her MD - 01/03/2025 Reason for exam (per EHR order): Research Study Additional clinical information obtained from the EHR: 49 -year-old MaleMetastatic castration resistant prostate cancer. Presents for injection #4of Lu177- vipivotide tetraxetan (Pluvicto) per protocol 23-693. TECHNIQUE: Radiopharmaceutical: Mg780-qjrjydrrqp tetraxetan (Pluvicto). Dose: 200.32 mCi. Procedure: A catheter was placed in the left antecubital fossa. Prior to the injection of Yn732-pyugbtmnnf tetraxetan, a time-out wasperformed, and IV patency was observed. Cm801-muazmzanau tetraxetan wasadministered over 13 minutes via IV infusion pump followed by salineflush. FINDINGS: Patient tolerated the infusion well without specific complaint Prior to discharge from Nuclear Medicine, dose rate at 1 meter was 1.87mR/hr. IMPRESSION: 1. Intravenous injection #4 of Qu652-mddpddmdit tetraxetan (Pluvicto) perprotocol 23-693.. Renata Gaston MD IMG NM RN THERAPY Final Result * (ABNORMAL) Hemoglobin A1c, sendout (01/01/2025 3:16 PM EDT) HEMOGLOBIN A1C 9.9(H) 4.0 - 5.6 % [facility] LAB MED AND PAT+ Comment: (NOTE) Hemoglobin A1c values greater than or equal to 6.5 percent are diagnostic for diabetes mellitus. Diagnosis should be confirmed by repeat testing. In diabetic patients, HbA1c goals should be discussed with healthcare provider. Blood 01/01/2025 3:16 PM EDT 01/01/2025 3:21 PM EDT Skylar Sood PA-C LAB BLOOD ORDERABLE S Final Result [facility] LAB MED AND PAT+ [address] [place] [address] * X-Label/study (01/01/2025 3:16 PM EDT) Only the most recent of4 resultswithin the time period is included. EXTRA TUBES NEEDED FOR RESEARCH STUDY [facility] LIC# [id number] Resulting Agency [facility] LIC# [id number] Blood 01/01/2025 3:16 PM EDT 01/01/2025 3:19 PM EDT Renata Gaston MD LAB BLOOD ORDERABLES Final Resu lt [facility] LIC# [id number] [address] [place] [address] * (ABNORMAL) PSA diagnostic (monitoring) (01/01/2025 3:16 PM EDT) Only the most recent of3 resultswithin the time period is included. PSA Monitoring 7.94(H) 0.00 - 4.00 ng/mL [facility] LIC# [id number] Blood 01/01/2025 3:16 PM EDT 01/01/2025 3:21 PM EDT us Renata Gaston MD LAB BLOOD ORDERABLES Final Resu lt Performing Organization Address City/[facility] Co de Phone Number [facility] LIC# [id number] [address] [place] [address] * (ABNORMAL) Testosterone, total (01/01/2025 3:16 PM EDT) Only the most recent of2 resultswithin the time period is included. TESTOSTERONE 8(L) 249 - 836 ng/dL [facility] LIC# [id number] Blood 01/01/2025 3:16 PM EDT 01/01/2025 3:21 PM EDT us Renata Gaston MD LAB BLOOD ORDERABLES Final Resu lt Performing Organization Address City/[facility]/ZIP Co de Phone Number [facility] LIC# [id number] [address] [place] [address] * NM Nuclear Medicine Radionuclide Therapy ??? Other (11/21/2024 11:33 AM EDT) Anatomical Region Laterality Modality Nuclear Medicine Other 11/21/2024 2:45 PM EDT Impressions 11/21/2024 2:46 PM EDT Intravenous injection of Es229-ljzorgkiwt tetraxetan #3. Narrative 11/21/2024 2:46 PM EDT Reason for exam (per EHR order): Research Study Additional clinical information obtained from the EHR: 49-year-old male. 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 Presents for injection #3 of Sx833-cntgbdtwak tetraxetan (Pluvicto) on [facility] clinical trial 23-693. TECHNIQUE: Radiopharmaceutical: Yb321-amlwctvmlf tetraxetan (Pluvicto). Dose: 211.1 mCi. Procedure: A catheter was placed in the right antecubital fossa. Prior to the injection of Gb570-bmkvykvacl tetraxetan, a time-out was performed, and IV patency was observed. Ho207-wxrpnnjzow tetraxetan was administered over ~13 minutes via IV infusion pump followed by saline flush. FINDINGS: No immediate adverse events. Prior to discharge from Nuclear Medicine, dose rate at 1 meter was 1.79 mR/hr. Procedure Note José Miguel Maurice MD - 11/21/2024 Reason for exam (per EHR order): Research Study Additional clinical information obtained from the EHR: 49-year-old male.Poorly differentiated metastatic carcinoma with neuroendocrinedifferentiation . Presents for injection #3 of Ko357-zqakogsorl tetraxetan(Pluvicto) on [facility] clinical trial 23- 693. TECHNIQUE: Radiopharmaceutical: Hl120-zwhsmatism tetraxetan (Pluvicto). Dose: 211.1 mCi. Procedure: A catheter was placed in the right antecubital fossa. Prior tothe injection of Kc595-ijpzrzspyr tetraxetan, a time-out was performed,and IV patency was observed. Tu438-gbgkejosjv tetraxetan was administeredover ~13 minutes via IV infusion pump followed by saline flush. FINDINGS: No immediate adverse events. Prior to discharge from Nuclear Medicine, dose rate at 1 meter was 1.79mR/hr. IMPRESSION: Intravenous injection of Tw164-hettvsuopm tetraxetan #3. us Renata Gaston MD IMG NM RN THERAPY Final Result * Lab Add On: Ferritin, iron, iron saturation TIBC (11/20/2024 12:57 PM EDT) Only the most recent of2 resultswithin the time period is included. TEST REQUESTED FERRITIN, IRON, IRON SATURATION TIBC [facility] LIC# [id number] Comments (Chemistry) TEST TO BE ADDED ON TO EXISTING SPECIMEN [facility] LIC# [id number] Blood 11/20/2024 12:5 7 PM EDT 11/20/2024 12:59 PM EDT us Renata Gaston MD LAB BLOOD ORDERABLES Final Resu lt Performing Organization Address City/[facility]/ZIP Co de Phone Number [facility] LIC# [id number] [address] * Iron and iron binding capacity (11/20/2024 11:48 AM EDT) IRON 63 59 - 158 ug/dL [facility] LIC# [id number] IRON BINDING CAPACITY 320 220 - 460 ug/dL [facility] LIC# [id number] TRANSFERRIN SATURAT. 20 14 - 50 % [facility] LIC# [id number] 11/20/2024 11:4 8 AM EDT 11/20/2024 11:49 AM EDT us Renata Gaston MD LAB BLOOD ORDERABLES Final Resu lt Performing Organization Address [facility] Co de Phone Number [facility] LIC# [id number] [address] [place] [address] * Ferritin (11/20/2024 11:48 AM EDT) FERRITIN 250 30 - 400 ug/L [facility] LIC# [id number] 11/20/2024 11:4 8 AM EDT 11/20/2024 11:49 AM EDT Renata Gaston MD LAB BLOOD ORDERABLES Final Resu lt Performing Organization Address City/[facility]/ZIP Co de Phone Number [facility] LIC# [id number] [address] [place] [address] * IR Biopsy Abdomen/Pelvis; Pelvis (Bone) (11/14/2024 2:46 PM EDT) Anatomical Region Laterality Modality Abdomen Computed Tomogra phy 11/14/2024 4:03 PM EDT Impressions 11/14/2024 4:52 PM EDT Image-guided core needle biopsy of a sclerotic lesion in the left sacrum was performed. ATTESTATION: Jayy Vargas, as teaching physician have reviewed the images, if any, for this patient's exam, and if necessary, have edited the report originally created by Brock Williamson. Narrative 11/14/2024 4:52 PM EDT Reason for procedure (per EHR order): On-treatment biopsy on clinical rial PROCEDURE: CT guided core needle biopsy of the left sacrum. ATTENDING RADIOLOGIST: Dr. Jayy Vargas, the teaching physician, was present for the entire procedure. RESIDENT/FELLOW: Dr. Brock Williamson PRE-PROCEDURAL CONSIDERATIONS AND MANAGEMENT: Coagulation parameters were reviewed and considered acceptable. A list of the patient's known allergies, current medications and adverse medication reactions have been reviewed prior to the procedure. RECENT IMAGING REVIEW: PSMA PET/CT 11/08/2024: Tracer avid sclerotic lesion in the left sacrum. CONSENT: Informed consent was obtained from the patient by Dr. Brock Williamson. The indication for the procedure, alternative options, attendant risks, and potential complications were discussed in detail and questions answered. A safety pause was performed immediately prior to the procedure. DEVICES: - Core needle biopsy: IZEA battery powered drill system with 13 gauge x 14 cm biopsy device and 11 gauge x 10 cm introducer IVCS: Moderate (conscious) sedation was administered by the radiology department nurse and supervised by the radiologist. The patient received midazolam 4 mg IV and fentanyl 200 mcg IV. The following parameters were monitored: oxygen saturation, heart rate, blood pressure and response to care. The radiologist spent 51 minutes of continuous agvr-de-ocwe sedation time with the patient. OTHER MEDICATIONS: 1% lidocaine, 10 ml for local anesthesia. CONTRAST MATERIAL: None. BIOPSY PROCEDURE: The patient was placed on the procedural table and preliminary images were acquired through the sacrum, which demonstrated the lesion for tissue sampling. A marker was placed on the skin and the approach confirmed. The patient was then prepped and draped using standard sterile technique and local anesthesia was administered. Under imaging guidance, the introducer needle was advanced into the lesion. Core Biopsy: The core biopsy needle device was advanced coaxially and a core needle sample was obtained. A total of 4 core needle samples were obtained for research. All needles were then removed and adequate hemostasis achieved. A dry sterile dressing was then applied. SPECIMENS SUBMITTED: Cores for research purposes. COMPLICATIONS: The patient tolerated this procedure well with no immediate complications. POST-PROCEDURE CONSIDERATIONS: The patient was observed in the radiology recovery room for 45 minutes prior to discharge. Post-procedure orders have been written and placed on the chart. Post-procedure instructions were provided to the patient along with contact instructions should any concerning symptoms arise. FOLLOW-UP PLAN: Follow-up results with referring physician. Procedure Note Jayy Clark MD - 11/14/2024 Reason for procedure (per EHR order): On-treatment biopsy on clinicalrial PROCEDURE: CT guided core needle biopsy of the left sacrum. ATTENDING RADIOLOGIST: Dr. Jayy Vargas, the teaching physician, waspresent for the entire procedure. RESIDENT/FELLOW: Dr. Brock Williamson PRE-PROCEDURAL CONSIDERATIONS AND MANAGEMENT: Coagulation parameters werereviewed and considered acceptable. A list of the patient's knownallergies, current medications and adverse medication reactions have beenreviewed prior to the procedure. RECENT IMAGING REVIEW: PSMA PET/CT 11/08/2024: Tracer avid scleroticlesion in the left sacrum. CONSENT: Informed consent was obtained from the patient by Dr. Og. The indication for the procedure, alternative options, attendantrisks, and potential complications were discussed in detail and questionsanswered. A safety pause was performed immediately prior to theprocedure. DEVICES: - Core needle biopsy: IZEA battery powered drill system with 13gauge x 14 cm biopsy device and 11 gauge x 10 cm introducer IVCS: Moderate (conscious) sedation was administered by the radiologydepartment nurse and supervised by the radiologist. The patient receivedmidazolam 4 mg IV and fentanyl 200 mcg IV. The following parameters weremonitored: oxygen saturation, heart rate, blood pressure and response tocare. The radiologist spent 51 minutes of continuous bjvp-me-uwnievcvdnfh time with the patient. OTHER MEDICATIONS: 1% lidocaine, 10 ml for local anesthesia. CONTRAST MATERIAL: None. BIOPSY PROCEDURE: The patient was placed on the procedural table andpreliminary images were acquired through the sacrum, which demonstratedthe lesion for tissue sampling. A marker was placed on the skin and the approach confirmed. The patientwas then prepped and draped using standard sterile technique and localanesthesia was administered. Under imaging guidance, the introducer needle was advanced into thelesion. Core Biopsy: The core biopsy needle device was advanced coaxially and acore needle sample was obtained. A total of 4 core needle samples wereobtained for research. All needles were then removed and adequate hemostasis achieved. A drysterile dressing was then applied. SPECIMENS SUBMITTED: Cores for research purposes. COMPLICATIONS: The patient tolerated this procedure well with no immediatecomplications. POST-PROCEDURE CONSIDERATIONS: The patient was observed in the radiologyrecovery room for 45 minutes prior to discharge. Post-procedure ordershave been written and placed on the chart. Post-procedure instructionswere provided to the patient along with contact instructions should anyconcerning symptoms arise. FOLLOW-UP PLAN: Follow-up results with referring physician. IMPRESSION: Image-guided core needle biopsy of a sclerotic lesion in the left sacrumwas performed. ATTESTATION: IJayy, as teaching physician have reviewed theimages, if any, for this patient's exam, and if necessary, have edited thereport originally created by Brock Williamson. Renata Gaston MD IMG IR Final Result * PET/CT Body Other/Research (11/08/2024 4:46 PM EDT) Anatomical Region Laterality Modality Computed Tomogra phy Other 11/08/2024 5:52 PM EDT Impressions 11/11/2024 8:42 AM EDT Compared to PSMA PET/CT scan from 08/21/2024, slight decrease in disease burden. 1. Decrease in intensity of tracer uptake in the skeletal lesions. 2. Similar to slightly decreased infradiaphragmatic lymph nodes. 3. Ill-defined haziness in the presacral and perirectal region showing heterogenous tracer uptake, similar. 4. Similar PSMA uptake in the prostate. Narrative 11/11/2024 8:42 AM EDT Reason for exam (per EHR order): Research Study Additional clinical information obtained from the EHR: 49-year-old male. History of poorly differentiated metastatic carcinoma of neuroendocrine features, prostatic origin. PSMA PET after 2 cycles of LuCarbo (89-439). Subsequent treatment strategy. TECHNIQUE: Radiopharmaceutical: Ga-68 Illucix. Dose: 6.3 mCi. Image acquisition: Approximately 67 minutes following IV tracer administration via a left antecubital fossa vein, positron emission tomography was performed from the vertex through the knees. Non-contrast low-dose helical CT imaging was performed over the same range without breath-hold for attenuation correction of PET images and anatomic correlation. COMPARISON: PSMA PET/CT CT 08/21/2024. FINDINGS: HEAD AND NECK: No abnormal radiotracer uptake. Similar subcentimeter hypoattenuating left thyroid nodule. CHEST: Ports and devices: Right IJ Port-A-cath with its tip terminating in the right atrium. Lungs: No abnormal radiotracer uptake. A few punctate calcified granulomas. Linear groundglass areas within the lungs, most likely atelectasis. Pleura: No abnormal radiotracer uptake. Lymph nodes: No abnormal radiotracer uptake. Mediastinum: No abnormal radiotracer uptake. Small hiatal hernia. Breasts/Chest wall: No abnormal radiotracer uptake. ABDOMEN/PELVIS: Liver/Biliary system: No abnormal radiotracer uptake. Mild hepatic steatosis. Gallstones. Pancreas: No abnormal radiotracer uptake. Spleen: No abnormal radiotracer uptake. Adrenal Glands: No abnormal radiotracer uptake. Kidneys: No abnormal radiotracer uptake. Photopenic right renal cyst. Bowel: No abnormal radiotracer uptake. Left lower quadrant loop colostomy with similar parastomal hernia containing nonobstructed small bowel loops and mesentery. Fat-containing umbilical hernia. Mesentery, Omentum and Peritoneum: Ill-defined haziness in the presacral and perirectal region showing heterogenous tracer uptake, likely indicating lymphatic spread of the disease, similar compared to prior scan Pelvic Organs: Similar PSMA uptake in the prostate appears similar compared to prior scan. Excreted contrast in the urinary bladder. Lymph Nodes: Overall similar to slightly decreased from diaphragmatic lymph nodes including -Similar para-aortic lymph nodes, measuring up to 1.6 x 0.9 cm (image 214), previously 1.6 x 0.9 cm. -Lymph nodes at the bifurcation of the aorta bilaterally (image 242), measuring up to 1.0 x 0.9 cm, appears similar. Similar left external iliac lymph node (image 79), measures 0.5 cm. -Resolution of previously seen tracer avid right obturator lymph node. -This conspicuous left lower quadrant mesenteric lymph node (previously seen in image 279). Musculoskeletal: Similar extent of sclerotic skeletal metastases disease involving axial and appendicular skeleton however, with decrease in intensity of tracer uptake at almost all the sites. Procedure Note Marisol Delvalle MD - 11/11/2024 Reason for exam (per EHR order): Research Study Additional clinical information obtained from the EHR: 49-year-old male.History of poorly differentiated metastatic carcinoma of neuroendocrinefeatures, prostatic origin. PSMA PET after 2 cycles of LuCarbo (23-633).Subsequent treatment strategy. TECHNIQUE: Radiopharmaceutical: Ga-68 Illucix. Dose: 6.3 mCi. Image acquisition: Approximately 67 minutes following IV traceradministration via a left antecubital fossa vein, positron emissiontomography was performed from the vertex through the knees. Uvj-aslnlfeazki-pzud helical CT imaging was performed over the same range withoutbreath-hold for attenuation correction of PET images and anatomiccorrelation. COMPARISON: PSMA PET/CT CT 08/21/2024. FINDINGS: HEAD AND NECK: No abnormal radiotracer uptake. Similar subcentimeterhypoattenuating left thyroid nodule. CHEST: Ports and devices: Right IJ Port-A-cath with its tip terminating in theright atrium. Lungs: No abnormal radiotracer uptake. A few punctate calcifiedgranulomas. Linear groundglass areas within the lungs, most likelyatelectasis. Pleura: No abnormal radiotracer uptake. Lymph nodes: No abnormal radiotracer uptake. Mediastinum: No abnormal radiotracer uptake. Small hiatal hernia. Breasts/Chest wall: No abnormal radiotracer uptake. ABDOMEN/PELVIS: Liver/Biliary system: No abnormal radiotracer uptake. Mild hepaticsteatosis. Gallstones. Pancreas: No abnormal radiotracer uptake. Spleen: No abnormal radiotracer uptake. Adrenal Glands: No abnormal radiotracer uptake. Kidneys: No abnormal radiotracer uptake. Photopenic right renal cyst. Bowel: No abnormal radiotracer uptake. Left lower quadrant loop colostomywith similar parastomal hernia containing nonobstructed small bowel loopsand mesentery. Fat-containing umbilical hernia. Mesentery, Omentum and Peritoneum: Ill-defined haziness in the presacraland perirectal region showing heterogenous tracer uptake, likelyindicating lymphatic spread of the disease, similar compared to priorscan Pelvic Organs: Similar PSMA uptake in the prostate appears similarcompared to prior scan. Excreted contrast in the urinary bladder. Lymph Nodes: Overall similar to slightly decreased from diaphragmaticlymph nodes including -Similar para-aortic lymph nodes, measuring up to 1.6 x 0.9 cm (), previously 1.6 x 0.9 cm. -Lymph nodes at the bifurcation of the aorta bilaterally (image 242),measuring up to 1.0 x 0.9 cm, appears similar. Similar left external iliac lymph node (image 79), measures 0.5 cm. -Resolution of previously seen tracer avid right obturator lymph node. -This conspicuous left lower quadrant mesenteric lymph node (previouslyseen in image 279). Musculoskeletal: Similar extent of sclerotic skeletal metastases diseaseinvolving axial and appendicular skeleton however, with decrease inintensity of tracer uptake at almost all the sites. IMPRESSION: Compared to PSMA PET/CT scan from 08/21/2024, slight decrease in diseaseburden. 1. Decrease in intensity of tracer uptake in the skeletal lesions. 2. Similar to slightly decreased infradiaphragmatic lymph nodes. 3. Ill-defined haziness in the presacral and perirectal region showingheterogenous tracer uptake, similar. 4. Similar PSMA uptake in the prostate. us Skylar Sood PA-C IMG NM PET Fin al Result * NM BONE SCAN WHOLE BODY (11/08/2024 2:29 PM EDT) Anatomical Region Laterality Modality Shoulder Right, Shoulder Lef t, Arm Left, Arm Right, Elbow Left, Elbow Right, Forearm Left, Forearm Right, Wrist Right, Wrist Left, Hand Left, Hand Right, Hip Left, Hip Right, Hip Bilateral, Thigh Left, Thigh Right, Knee Left, Knee Right, Knee Bilateral, Leg Left, Leg Right, Ankle Left, Ankle Right, Foot Left, Foot Right, Pelvis Nucle ar Medicine Other 11/08/2024 3:38 PM EDT Impressions 11/08/2024 4:11 PM EDT 1. Overall similar extensive known osseous metastatic lesions involving the axial and proximal appendicular skeleton. 2. No new regions of uptake. ATTESTATION: Jackson Vargas, as teaching physician have reviewed the images, if any, for this patient's exam, and if necessary, have edited the report originally created by Donovan Montes De Oca. Narrative 11/08/2024 4:11 PM EDT Reason for exam (per EHR order): Research Study Additional clinical information obtained from the EHR: 49-year-old male. Suffers from poorly differentiated metastatic carcinoma with neuroendocrine differentiation with a prostate primary in the setting of elevated PSA. Currently on carboplatin started 08/30/2024. PSA wnl TECHNIQUE: Radiopharmaceutical: Tc-99m MDP. Dose: 21.2 mCi. Image acquisition: Approximately three hours following the intravenous administration of radiopharmaceutical, whole body planar imaging was performed in the anterior and posterior projections with additional spot views of the skull, face and upper extremities.. COMPARISON: Nuclear medicine bone scan dated 08/21/2024. Same day CT chest/abdomen/pelvis dated 11/08/2024. FINDINGS: Similar distribution of radiotracer uptake within the axial and proximal appendicular skeleton, with the majority demonstrating interval decreased uptake compared to prior, for example sternal, right shoulder, and thoracic spine. There are a few areas which demonstrate slightly increased uptake when compared to prior, including the right femoral neck and the fifth and sixth left lateral ribs. Similar distribution and uptake within the calvarium. Procedure Note Jackson Adair MBBS - 11/08/2024 Reason for exam (per EHR order): Research Study Additional clinical information obtained from the EHR: 49-year-old male.Suffers from poorly differentiated metastatic carcinoma withneuroendocrine differentiation with a prostate primary in the setting ofelevated PSA. Currently on carboplatin started 08/30/2024. PSA wnl TECHNIQUE: Radiopharmaceutical: Tc-99m MDP. Dose: 21.2 mCi. Image acquisition: Approximately three hours following the intravenousadministration of radiopharmaceutical, whole body planar imaging wasperformed in the anterior and posterior projections with additional spotviews of the skull, face and upper extremities.. COMPARISON: Nuclear medicine bone scan dated 08/21/2024. Same day CTchest/abdomen/pelvis dated 11/08/2024. FINDINGS: Similar distribution of radiotracer uptake within the axial and proximalappendicular skeleton, with the majority demonstrating interval decreaseduptake compared to prior, for example sternal, right shoulder, andthoracic spine. There are a few areas which demonstrate slightly increaseduptake when compared to prior, including the right femoral neck and thefifth and sixth left lateral ribs. Similar distribution and uptake within the calvarium. IMPRESSION: 1. Overall similar extensive known osseous metastatic lesions involvingthe axial and proximal appendicular skeleton. 2. No new regions of uptake. ATTESTATION: Jackson Vargas, as teaching physician have reviewed theimages, if any, for this patient's exam, and if necessary, have edited thereport originally created by Donovan Montes De Oca. Renata Gaston MD [facility] BONE SCAN Final Result * CT CHEST WITH CONTRAST (11/08/2024 11:22 AM EDT) Anatomical Region Laterality Modality Chest Computed Tomogra phy Other 11/13/2024 1:18 PM EDT Impressions 11/13/2024 7:58 PM EDT 1. Increased sclerosis of the innumerable osseous metastases, which could be attributed to treatment response. 2. No other convincing evidence of metastatic disease in the chest. ATTESTATION: IGino, as teaching physician have reviewed the images, if any, for this patient's exam, and if necessary, have edited the report originally created by Jacob Samson. 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 TECHNIQUE: Multidetector CT of the chest was performed with intravenous contrast using tailored dose modulation techniques. COMPARISON: CT CHEST WITH CONTRAST ; NM PET CT PROSTATE CANCER IMAGING FINDINGS: Devices/Tubes/Lines: Right IJ port catheter with tip terminating in the right atrium. Lungs: No suspicious pulmonary nodules or consolidation. Scattered few calcified granulomas. Mild diffuse bronchial wall thickening. The central airways are clear. Pleura: No pleural effusion or pneumothorax. Mediastinum: Heart normal size. No pericardial effusion. Shared common origin of the right brachiocephalic and left common carotid arteries. Lymph Nodes: No enlarged supraclavicular, axillary, mediastinal, or hilar lymph nodes. Upper Abdomen: Please see concurrent abdominal CT for abdominal findings. Chest Wall: No chest wall mass. Bones: Interval increase in degree of sclerosis of diffuse sclerotic osseous metastasis involving the imaged skeleton. No suspicious lytic or blastic lesions. Bilateral cervical ribs Procedure Note Gino Gautam MD - 11/13/2024 CT CHEST WITH CONTRAST Referring clinician's provided indication for this examination in Epic:Research Study Review of the Electronic Medical Record reveals an additional history of:poorly differentiated metastatic carcinoma with neuroendocrinedifferentiation initially thought to be rectal primary and subsequentlythought to be prostate primary in setting of elevated PSA. TECHNIQUE: Multidetector CT of the chest was performed with intravenouscontrast using tailored dose modulation techniques. COMPARISON: CT CHEST WITH CONTRAST ; [place] PET CT PROSTATE CANCERIMAGING FINDINGS: Devices/Tubes/Lines: Right IJ port catheter with tip terminating in theright atrium. Lungs: No suspicious pulmonary nodules or consolidation. Scattered fewcalcified granulomas. Mild diffuse bronchial wall thickening. The centralairways are clear. Pleura: No pleural effusion or pneumothorax. Mediastinum: Heart normal size. No pericardial effusion. Shared commonorigin of the right brachiocephalic and left common carotid arteries. Lymph Nodes: No enlarged supraclavicular, axillary, mediastinal, or hilarlymph nodes. Upper Abdomen: Please see concurrent abdominal CT for abdominalfindings. Chest Wall: No chest wall mass. Bones: Interval increase in degree of sclerosis of diffuse scleroticosseous metastasis involving the imaged skeleton. No suspicious lytic orblastic lesions. Bilateral cervical ribs IMPRESSION: 1. Increased sclerosis of the innumerable osseous metastases, which couldbe attributed to treatment response. 2. No other convincing evidence of metastatic disease in the chest. ATTESTATION: IGino, as teaching physician have reviewed theimages, if any, for this patient's exam, and if necessary, have edited thereport originally created by Jacob Samson. us Renata Gaston MD IMG CT CHEST Final Result * CT ABDOMEN/PELVIS WITH CONTRAST (11/08/2024 11:22 AM EDT) Anatomical Region Laterality Modality Abdomen, Pelvis Computed Tomogra phy Other 11/08/2024 2:19 PM EDT Impressions 11/08/2024 2:27 PM EDT 1. Extensive multifocal osseous metastases, all increased in attenuation which is likely due to treatment effect rather than an increased volume of metastatic disease. 2. Unchanged nonenlarged retroperitoneal and pelvic lymph nodes, metastatic given appearance on prior PET/CT but not enlarged. Narrative 11/08/2024 2:[address] ABDOMEN/PELVIS WITH CONTRAST Referring clinician's provided indication for this examination in Epic: Research Study Review of the Electronic Medical Record reveals an additional history of: Metastatic carcinoma with neuroendocrine differentiation, suspected prostate primary. TECHNIQUE: Multidetector-row CT of the abdomen and pelvis was performed after administration of intravenous contrast using tailored dose modulation techniques. Images were reconstructed in the axial, coronal, and sagittal planes. COMPARISON: PET/CT 08/21/2024. FINDINGS: Lower Chest: CT chest from the same day is reported separately. Liver: Reduced attenuation consistent with fatty liver. Biliary: Normal. No biliary ductal dilatation. Spleen: Normal. No splenomegaly or focal lesions. Pancreas: Normal. No masses or ductal dilatation. Adrenal Glands: Normal. No nodules. Kidneys/Ureters: 1.5 cm right pole renal lesion which measures higher than attenuation (2:33) and has mildly heterogeneous internal contents. Tiny low-attenuation lesion in the lower pole left kidney. Bowel: No thickened or dilated bowel loops. Left lower quadrant parastomal hernia as described. Peritoneum/Retroperitoneum: Large left lower quadrant parastomal hernia containing nonobstructed large and small bowel measures 14.9 cm with 2.1 cm neck. No pneumoperitoneum or ascites. Lymph Nodes: No lymphadenopathy by size criteria. Previously avid lymph nodes in the retroperitoneum and pelvis are normal in size. Pelvic Organs/Bladder: Presacral edema/stranding. Known prostate lesion is not definitively identified on CT. Vessels: Normal. No abdominal aortic aneurysm. Bones/Soft Tissues: Moderate size fat-containing umbilical hernia. Extensive blastic osseous metastatic disease involving the axial and appendicular skeleton including all lumbar vertebral bodies, pelvic bones, and femora. When compared to prior, the osseous metastatic disease has substantially increased in attenuation. Some lesions which were not previously visible are now apparent. Procedure Note Abe Law MD - 11/08/2024 CT ABDOMEN/PELVIS WITH CONTRAST Referring clinician's provided indication for this examination in Epic:Research Study Review of the Electronic Medical Record reveals an additional history of:Metastatic carcinoma with neuroendocrine differentiation, suspectedprostate primary. TECHNIQUE: Multidetector-row CT of the abdomen and pelvis was performedafter administration of intravenous contrast using tailored dosemodulation techniques. Images were reconstructed in the axial, coronal,and sagittal planes. COMPARISON: PET/CT 08/21/2024. FINDINGS: Lower Chest: CT chest from the same day is reported separately. Liver: Reduced attenuation consistent with fatty liver. Biliary: Normal. No biliary ductal dilatation. Spleen: Normal. No splenomegaly or focal lesions. Pancreas: Normal. No masses or ductal dilatation. Adrenal Glands: Normal. No nodules. Kidneys/Ureters: 1.5 cm right pole renal lesion which measures higher thanattenuation (2:33) and has mildly heterogeneous internal contents. Tinylow-attenuation lesion in the lower pole left kidney. Bowel: No thickened or dilated bowel loops. Left lower quadrant parastomalhernia as described. Peritoneum/Retroperitoneum: Large left lower quadrant parastomal herniacontaining nonobstructed large and small bowel measures 14.9 cm with 2.1cm neck. No pneumoperitoneum or ascites. Lymph Nodes: No lymphadenopathy by size criteria. Previously avid lymphnodes in the retroperitoneum and pelvis are normal in size. Pelvic Organs/Bladder: Presacral edema/stranding. Known prostate lesion isnot definitively identified on CT. Vessels: Normal. No abdominal aortic aneurysm. Bones/Soft Tissues: Moderate size fat-containing umbilical hernia.Extensive blastic osseous metastatic disease involving the axial andappendicular skeleton including all lumbar vertebral bodies, pelvic bones,and femora. When compared to prior, the osseous metastatic disease hassubstantially increased in attenuation. Some lesions which were notpreviously visible are now apparent. IMPRESSION: 1. Extensive multifocal osseous metastases, all increased in attenuationwhich is likely due to treatment effect rather than an increased volume ofmetastatic disease. 2. Unchanged nonenlarged retroperitoneal and pelvic lymph nodes,metastatic given appearance on prior PET/CT but not enlarged. Renata Gaston MD IMG CT ABD/PELVIS Final Result from Last 3 Months Insurance [facility] ONE CARE MEDICARE REPLACEMENT [facility] ONE CARE MEDICARE REPLACEMENT [address] [address] [place] [address] MEDICARE REPLACEMENT [facility] MEDICARE REPLACEMENT [facility] MEDICARE REPLACEMENT MEDICARE CLINICAL TRIAL RESTRICTED USE [facility] ONE CARE MEDICARE REPLACEMENT MEDICARE CLINICAL TRIAL RESTRICTED USE Care Teams Licensed Vocational Nurse Relationship Specialty Start Date End Date Pcp, Unknown PCP - General 01/21/25 Gustavo Temple MD [address] [place] [phone] [email or web address] Medical Oncology 08/01/23 Sj Addison MD [address] [place] [phone] [email or web address] Medical Oncology 09/13/23 Jennifer Suarez RN [address] [place] [phone] [email or web address] Primary Infusion Nurse 08/30/24 Juany Echeverria, [facility] [address] [place] [address] [email or web address] Editor In Chief Newspaper Licensed Clinical Editor In Chief Newspaper 09/10/24 Annetta Dia, DIVISION ROADMASTER, PhD [address] [place] [address] [place] [address] [email or web address] Palliative Care 10/03/24 Additional Source Comments The information contained in this document represents components of the legal health record. It is not the complete legal health record.[facility]
--- OUTSIDE RECORDS SUMMARY | 2025-01-30 14:32 | XMS_ITS | Encounter Summary ---
Author Organization [facility] Address [address] [place] [address] [place] [phone] Phone Care Team Providers Care Special Agent In Charge Name Role Phone Gustavo Temple MD Unavailable Yonny Martinez Unavailable Unavailable Pcp, Unknown Primary Care Provider UnavailSj Montenegro MD Unavailable [phone] Pcp, Not Required Primary Care Provider Unavaila Jennifer Artis RN Unavailable FILI [email or web address] Juany Szymanski [facility] Unavailable [phone] Annetta Dia MANAGER UTILIZATION, PhD Unavailable Pcp, Unknown Primary Care Provider Unavailabl e Encounter Details Date Type Department Care Team (Late st Contact Info) Description 05/11/2024 Procedure Pass [facility] Cross Sectional Interventional Radiology [address] [place] [phone] Social History Tobacco Use Types Packs/Day Years [...] high school, GED, job training, learning the Nepali language, technical skills, or developing parenting skills)? [...] st Contact Info) Description 10/10/2024 Procedure Pass [place], [place] [address] [address] 10/10/2024 Procedure Pass [place] [address] [address] 02/08/2025 11:30 AM EDT Appointment [facility], Nuclear Medicine [address] [address] Rneata Gaston MD [address] [place] [address] [email or web address] 02/08/2025 1:30 PM EDT Appointment [facility] [place] [address] [address] Renata Gaston MD [address] [place] [address] [email or web address] 02/08/2025 2:15 PM EDT Appointment [facility], Nuclear Medicine [address] [address] Renata Gaston MD [address] [facility] [address] [place] [address] [email or web address] 02/11/2025 1:50 PM EDT Blood Draw Laboratory Services, [address] [place] [address] Renata Gaston MD [address] [place] [address] [email or web address] 02/11/2025 3:00 PM EDT Office Visit [facility], [address] [place] [address] Wendy Epps MD, MPH [address] [place] [address] [email or web address] 02/11/2025 3:00 PM EDT Nurse Only [facility], [address] Center, [address] [place] [phone] Renata Gaston MD [address] [place] [phone] [email or web address] 02/11/2025 4:00 PM EDT Infusion Infusion Therapy Services [address], [place] [address] Renata Gaston MD [address] [place] [phone] [email or web address] Jennifer Suarez RN [address] [place] [phone] ELDA@ [facility] 02/12/2025 1:00 PM EDT Appointment [facility], Nuclear Medicine [address] [address] Renata Gaston MD [address] [place] [phone] [email or web address] 02/20/2025 3:00 PM EDT Telemedicine Adult Palliative Care, [address], [place] [address] Annetta Dia NP, PhD [address] [place] [address] [place] [address] [email or web address] Kathe Ferreira MD, MPH [address] [place] [phone] [email or web address] documented as of this encounter Visit Diagnoses Not on filedocumented in this encounter Care Teams Special Agent In Charge Relationship Specialty Start Date End Date Yonny Martinez PA [address] [place] [address] PCP - Internal Medicine Physician Studio Camera Operator 08/01/23 01/20/25 Pcp, Unknown PCP - General 08/04/23 08/20/24 Pcp, Not Required [address] [place] [id number] PCP - General 08/21/24 01/20/25 Pcp, Unknown PCP - General 01/21/25 Gustavo Temple MD [address] [place] [phone] [email or web address] Medical Oncology 08/01/23 Sj Addison MD [address] [place] [phone] [email or web address] Medical Oncology 09/13/23 Jennifer Suarez RN [address] [place] [address] [email or web address] Primary Infusion Nurse 08/30/24 Juany Echeverria, [facility] [address] [place] [address] [email or web address] Director [employer] Licensed Clinical Director [employer] 09/10/24 Annetta Dai, FABI, PhD [address] [place] [address] [place] [address] [email or web address] [email or web address] Palliative Care 10/03/24 documented as of this encounter Additional Source Comments The information contained in this document represents components of the legal health record. It is not the complete legal health record.[facility]
--- OUTSIDE RECORDS SUMMARY | 2025-01-30 14:32 | XMS_ITS ---
Author Organization [facility] Address [address] [place] [phone] Phone Care Team Providers Care Sewing Machine Operator Paper Bags Name Role Phone Gustavo Temple MD Unavailable [phone] Sj Addison MD Unavailable Jennifer Suarez RN Unavailable FILI [email or web address] Juany Szymanski VRT MECHANIC Unavailable [phone] Annetta Dia TANKER TRUCK DRIVER, PhD Unavailable Pcp, Unknown Primary Care Provider Unavailabl e Active Problems Patient Care Coordination No te Formatting of this note is d ifferent from the original. ALERT: 01/02/25 : received C4 Pluvicto on Protocol - . May refer to Clinical Care of Patients Receiving Radioactive Materials in [place] Problem Noted Date Diagnosed Date Iron deficiency anemia meghna wallace to inadequate dietary iron intake 08/30/2024 Prostate cancer 09/12/2023 Current Treatment and Therapy Plans : 200mCi [id number] Q6W D2 + CARBOPLATIN AUC 2 Q3W D1,22* Plan Start Date:08/30/2024 Plan Provider:Renata Gaston MD Linked Problems Prostate cancer Treatment Medications Current Day (Day 1 , Cycle 5 - Planned for 02/12/2025) Next Day (Day 22, Cycle 5 - Planned for 03/05/2025) ID-carboplatin ()ID-carboplatin () IVPB 250 mL Bag ID-CARBOplatin () 300 mg in D5W 300 mL IVPB ID-CARBOplatin () 300 mg in D5W 300 mL IVPB FERUMOXYTOL (FERAHEME)* Plan Start Date:09/13/2024 Plan Provider:Skylar Sood PA-C Linked Problems Iron deficiency anemia meghna wallace to inadequate dietary iron intakeProstate cancer Treatment Medications No medications scheduled. Past Treatment and Therapy Plans No past plan information found.
--- OUTSIDE RECORDS SUMMARY | 2025-01-30 14:32 | XMS_ITS | Clinical Summary ---
Author Organization [facility] Address [address] [place] [address] Phone Care Team Providers Care Swimming Coach Or Instructor Name Role Phone Yonny Nolasco Primary Care Provider [phone] Allergies Active Allergy Reactions Criticality Noted Date Comments Morphine Nausea And Vomiting 08/09/2024 Oxycodone Nausea And Vomiting 08/09/2024 Medications atorvastatin (LIPITOR) 20 mg tablet Take 1 tablet (20 mg total) by mouth every night at bedtime. 4 Active pen needle, diabetic 31 gauge x 3/16 needle B-D UF III MINI PEN NEEDLES 31G X 5 MM MISC USE WITH LANTUS PEN DAILY 3 Active diclofenac (VOLTAREN) 1 % topical gel 4 Active fentaNYL (DURAGESIC) 50 mcg/hr Place 1 patch onto the skin every third day. - Transdermal Active hydroCHLOROthia zide (HYDRODIURIL) 25 mg tablet 4 Active labetaloL (NORMODYNE) 200 mg tablet Take 1 tablet (200 mg total) by mouth 2 (two) times a day. 4 Active insulin glargine (Lantus Solostar U-100 Insulin) 100 unit/mL (3 mL) injection pen Active lidocaine-prilo jair (EMLA) 2.5-2.5 % cream APPLY TOPICALLY ONCE FOR 1 DOSE. 4 Active lisinopril (PRINIVIL,ZESTR IL) 40 mg tablet Take 1 tablet (40 mg total) by mouth daily. 4 Active LORazepam (ATIVAN) 1 mg tablet Take 1 tablet (1 mg total) by mouth every 6 (six) hours as needed. 4 Active ondansetron (ZOFRAN) 8 mg tablet Take 1 tablet (8 mg total) by mouth every 8 (eight) hours as needed for nausea. 4 Active predniSONE (DELTASONE) 5 mg tablet Take 1 tablet (5 mg total) by mouth daily. 4 Active dulaglutide (Trulicity) 3 mg/0.5 mL pen injector injection INJECT 3 MG SUBCUTANEOUS INFUSION EVERY WEEK, ROTATE INJECTION SITES 3 Active abiraterone (ZYTIGA) 250 mg 4 Active amLODIPine (NORVASC) 10 mg tablet Take 1 tablet (10 mg total) by mouth 1 (one) time each day. 4 Active metFORMIN XR (GLUCOPHAGE-XR) 500 mg 24 hr tablet TAKE 2 TABLETS BY MOUTH TWICE A DAY TAKE WITH FOOD 4 Active sertraline (ZOLOFT) 25 mg tablet TAKE 1 TABLET BY MOUTH DAILY FOR 2 WEEKS, THEN INCREASE TO 2 TABLETS DAILY. 4 Active bicalutamide (CASODEX) 50 mg tablet TAKE 1 TABLET BY MOUTH EVERY DAY 30 tablet 1 4 Active diphenhydrAMINE (BENADRYL) 25 mg capsule Take 2 capsules (50 mg total) by mouth 3 (three) times a day if needed for itching for up to 2 days. 12 each 5 Active HYDROmorphone (DILAUDID) 2 mg tablet 5 Active metoclopramide (REGLAN) 10 mg tablet Take 1 tablet (10 mg total) by mouth every 6 (six) hours. 14 tablet 5 Active Active Problems Problem Noted Date Diagnosed Date Prostate cancer metastatic t o bone (CMS/HCC V24, CMS/HCC V28) 08/23/2023 Rectal cancer metastatic to bone (CMS/HCC V24, C IN/HCC V28) 08/10/2023 Encounters Date Type Department Care Team Description 01/11/2025 1:49 AM EDT - 01/11/2025 8:39 AM EDT Emergency [facility] Emergency [address] [place] [phone] Sienna Hoyos MD Generalized abdominal pain (Primary Dx); Hyperglycemia Discharge Disposition: Home or Self Care 11/28/2024 1:45 PM EDT Office Visit [facility] Hematology Oncology [address] [place] [phone] Sj Addison MD Prostate cancer metastatic to bone ([facility] V24, [facility] V28) (Primary Dx) from Last 3 Months Medical History Medical History Date Comments Hypertension DX:Hypertension Diabetes mellitus ([facility] V24, [facility] V28) DX:Diabetes mellitus ([facility]) Social History Tobacco Use Types Packs/Day Years [...] Orientation Straight 05/23/2024 10 :14 AM EST Obstetrics History Last Filed Vital Signs Vital Sign Reading Time Taken Comments Blood Pressure 105/76 01/11/2025 5:17 AM EDT Pulse 101 01/11/2025 5:17 AM EDT Temperature 36.7 C (98.1 F) 01/11/2025 1:34 AM EDT Respiratory Rate 20 01/11/2025 5:17 AM EDT Oxygen Saturation 97% 01/11/2025 5:17 AM EDT Inhaled Oxygen Concentration - - Weight 127 kg (280 lb) 01/11/2025 1:30 AM EDT Height 188 cm (6' 2 ) 01/11/2025 1:30 AM EDT Body Mass Index 35.95 01/11/2025 1:30 AM EDT Plan of Treatment Upcoming Encounters Date Type Department Care Team (Late st Contact Info) Description 02/21/2025 3:00 PM EDT Appointment [facility] Infusion Center [address] [phone] 03/14/2025 1:45 PM EST Office Visit [facility] Hematology Oncology [address] [place] [phone] Sj Addison MD [address] [place] [address] Health Maintenance Due Date Last Done Comments COVID-19 Vaccine (#1) 1982 Diabetes: Annual Foot Exam 1987 Diabetes: Annual Retina Eye Exam 1987 Hepatitis A Vaccines (1 of 2 - Risk 2-dose series) 02/03/1996 Hepatitis B Vaccines (1 of 3 - 19+ 3-dose series) 02/03/1996 Pneumococcal Vaccine: Pediatrics (0 to 5 Years) and At-Risk Patients (6 to 49 Years) (1 of 2 - PCV) 02/03/1996 DTaP,Tdap,and Td Vaccines (2 - Tdap) 10/02/2018 10/02/2008 Cholesterol Screening (Lipid Panel) 11/30/2023 Colorectal Cancer Screening: Colonoscopy 11/30/2023 HIV Screening 11/30/2023 Hepatitis C Screening 11/30/2023 Medicare Annual Wellness Visit 11/30/2023 Social Influencers of Health Screening 11/30/2023 Diabetes: Annual Urine Albumin-Creatinine Ratio (uACR) 03/12/2024 Depression Screening 05/09/2024 Influenza Vaccine (#1) 2025 , 02/27/2021, 02/07/2020, Additional history exists Diabetes: Blood Sugar Control Test (HGBA1C) 07/04/2025 01/01/2025, 09/18/2024, 03/29/2024 Diabetes: Annual GFR (Glomerular Filtration Rate) 01/11/2026 01/11/2025, 01/01/2025, 12/12/2024, Additional history exists Hypertension/CHF/CAD Annual BMP Blood Test 01/11/2026 01/11/2025, 01/01/2025, 12/12/2024, Additional history exists RSV Immunization Adult Patients (1 - 1-dose 75+ series) 02/03/2052 HIB Vaccines Aged Out No longer eligi ble based on patient's age to complete this topic HPV Vaccines Aged Out No longer eligi ble based on patient's age to complete this topic IPV Vaccines Aged Out No longer eligi ble based on patient's age to complete this topic MMR Vaccines Aged Out No longer eligi ble based on patient's age to complete this topic Meningococcal ACWY Vaccine Aged Out N o longer eligible based on patient's age to complete this topic Meningococcal B Vaccine Aged Out No l onger eligible based on patient's age to complete this topic RSV Immunization Patients Under 20 months Aged Out No longer eligible based on patient's age to complete this topic Varicella Vaccines Aged Out No longer eligible based on patient's age to complete this topic Procedures Procedure Name Priority Date/Time Associated Diagnosis Comments ECG ANNOTATED 01/12/2025 CT ABDOMEN PELVIS W CONTRAST STAT 01/11/2025 6:28 AM EDT CBC WITH AUTO DIFFERENTIAL STAT 01/11/2025 2:07 AM EDT LIPASE STAT 01/11/2025 2:07 AM EDT COMPREHENSIVE METABOLIC PANEL STAT 01/11/2025 2:07 AM EDT CBC AND DIFFERENTIAL STAT 01/11/2025 2:07 AM EDT ECG 12-LEAD STAT 01/11/2025 1:39 AM EDT from Last 3 Months Results * ECG-Annotated (01/12/2025) us Provider Onbase MD ECG ORDERABLES Final Result * CT Abdomen Pelvis w Contrast (01/11/2025 6:28 AM EDT) Anatomical Region Laterality Modality Body Computed Tomogra phy 01/11/2025 9:17 AM EDT Impressions 01/11/2025 9:17 AM EDT 1. Up to 2 cm presacral fat effacement and fat stranding (partially surrounding the distal sigmoid colon) likely secondary to posttreatment changes (per prior report, history of prostate cancer). 2. Uncomplicated moderate sized left infraumbilical ventral abdominal wall hernia (+/-colostomy since there seems to be possible focal skin disruption at this level; correlate clinically) containing portion of the sigmoid colon. No bowel obstruction. 3. Diffuse sclerotic osseous metastases without acute pathologic fracture. This document has been electronically signed by: Layne Rubio MD on 01/11/2025 09:17:04 Narrative 01/11/2025 9:17 AM EDT INDICATION: Bowel obstruction suspected CT abdomen and pelvis with contrast Comparison: Abdomen MRI due to 09/21/2023 Findings: No consolidation or effusion. Partially evaluated likely central venous catheter with distal tip in the cavoatrial junction. Spleen, gallbladder, pancreas, adrenals, and urinary bladder are unremarkable. Hepatic steatosis. Simple right renal cyst. No hydronephrosis or urinary tract stone. Up to 2 cm presacral fat effacement and fat stranding (partially surrounding the distal sigmoid colon) likely secondary to posttreatment changes (per prior report, history of prostate cancer). Uncomplicated moderate sized left infraumbilical ventral abdominal wall hernia (+/-colostomy since there seems to be possible focal skin disruption at this level; correlate clinically) containing portion of the sigmoid colon. No bowel obstruction. Uncomplicated [id number] sized fat containing umbilical hernia. Normal appendix. Diffuse sclerotic osseous metastases without acute pathologic fracture. Procedure Note Layne Rubio MD - 01/11/2025 INDICATION: Bowel obstruction suspected CT abdomen and pelvis with contrast Comparison: Abdomen MRI due to 09/21/2023 Findings: No consolidation or effusion. Partially evaluated likely central venous catheter with distal tip in the cavoatrial junction. Spleen, gallbladder, pancreas, adrenals, and urinary bladder are unremarkable. Hepatic steatosis. Simple right renal cyst. No hydronephrosis or urinary tract stone. Up to 2 cm presacral fat effacement and fat stranding (partially surrounding the distal sigmoid colon) likely secondary to posttreatment changes (per prior report, history of prostate cancer). Uncomplicated moderate sized left infraumbilical ventral abdominal wall hernia (+/-colostomy since there seems to be possible focal skin disruption at this level; correlate clinically) containing portion ofthe sigmoid colon. No bowel obstruction. Uncomplicated [id number] sized fat containing umbilical hernia. Normal appendix. Diffuse sclerotic osseous metastases without acute pathologic fracture. IMPRESSION: 1. Up to 2 cm presacral fat effacement and fat stranding (partially surrounding the distal sigmoid colon) likely secondary to posttreatment changes (per prior report, history of prostate cancer). 2. Uncomplicated moderate sized left infraumbilical ventral abdominalwall hernia (+/-colostomy since there seems to be possible focal skin disruption at this level; correlate clinically) containing portion ofthe sigmoid colon. No bowel obstruction. 3. Diffuse sclerotic osseous metastases without acute pathologicfracture. This document has been electronically signed by: Layne Rubio MD on 01/11/2025 09:17:04 Sienna Hoyos MD IM CT PROCEDURES Final Result * (ABNORMAL) CBC auto differential (01/11/2025 2:07 AM EDT) WBC 5.7 4.8 - 10.8 K/mcL LAB HEMETOLOGY METHOD 01/11/2025 2:23 AM [facility] RBC 3.70(L) 4.50 - 5.50 M/mcL LAB HEMETOLOGY METHOD 01/11/2025 2:23 AM [facility] Hemoglobin 9.8(L) 13.5 - 17.5 g/dL LAB HEMETOLOGY METHOD 01/11/2025 2:23 AM [facility] Hematocrit 29.5(L) 42.0 - 54.0 % LAB HEMETOLOGY METHOD 01/11/2025 2:23 AM [facility] MCV 80.8 79.0 - 98.0 FL LAB HEMETOLOGY METHOD 01/11/2025 2:23 AM [facility] MCH 26.8(L) 27.0 - 32.0 pcg LAB HEMETOLOGY METHOD 01/11/2025 2:23 AM [facility] MCHC 33.2 32.0 - 37.0 g/dL LAB HEMETOLOGY METHOD 01/11/2025 2:23 AM [facility] RDW 15.1(H) 11.0 - 15.0 % LAB HEMETOLOGY METHOD 01/11/2025 2:23 AM [facility] Platelets 198 130 - 400 K/mcL LAB HEMETOLOGY METHOD 01/11/2025 2:23 AM [facility] MPV 8.8 7.0 - 11.0 FL LAB HEMETOLOGY METHOD 01/11/2025 2:23 AM [facility] NRBC 0.0 <1.0 % LAB HEMETOLOGY METHOD 01/11/2025 2:23 AM [facility] NRBC Absolute 0.00 <0.10 K/mcL LAB HEMETOLOGY METHOD 01/11/2025 2:23 AM [facility] Neutrophils Relative 76.2 % LAB HEMETOLOGY METHOD 01/11/2025 2:23 AM [facility] Lymphocytes Relative 12.7 % LAB HEMETOLOGY METHOD 01/11/2025 2:23 AM [facility] Monocytes Relative 10.0 % LAB HEMETOLOGY METHOD 01/11/2025 2:23 AM [facility] Eosinophils Relative 0.0 % LAB HEMETOLOGY METHOD 01/11/2025 2:23 AM [facility] Basophils Relative 0.4 % LAB HEMETOLOGY METHOD 01/11/2025 2:23 AM [facility] Immature Granulocytes Relative 0.7 % LAB HEMETOLOGY METHOD 01/11/2025 2:23 AM [facility] Neutrophils Absolute 4.34 1.50 - 7.00 K/mcL LAB HEMETOLOGY METHOD 01/11/2025 2:23 AM [facility] Lymphocytes Absolute 0.72(L) 1.00 - 5.00 K/mcL LAB HEMETOLOGY METHOD 01/11/2025 2:23 AM [facility] Monocytes Absolute 0.57 0.20 - 1.00 K/mcL LAB HEMETOLOGY METHOD 01/11/2025 2:[address] [facility] Eosinophils Absolute 0.00 0.00 - 0.50 K/[facility] LAB HEMETOLOGY METHOD 01/11/2025 2:[address] [facility] Basophils Absolute 0.02 0.00 - 0.20 K/[facility] LAB HEMETOLOGY METHOD 01/11/2025 2:[address] [facility] Immature Granulocytes Absolute 0.04(H) 0.00 - 0.03 K/[facility] LAB HEMETOLOGY METHOD 01/11/2025 2:[address] [facility] Blood Venous blood specimen / Unknown Venipuncture / Unknown 01/11/2025 2:07 AM EDT 01/11/2025 2:18 AM EDT Ole Perea MD LAB BLOOD ORDERABLES Final R esult Performing Organization Address City/[facility]/ZIP Co de Phone Number [facility] [address] [place] [address], [place] [phone] * Lipase (01/11/2025 2:07 AM EDT) Pathologist [facility] Lipase 54 13 - 75 unit/L LAB CHEMISTRY METHOD 01/11/2025 2:[address] [facility] Blood Venous blood specimen / Unknown Venipuncture / Unknown 01/11/2025 2:07 AM EDT 01/11/2025 2:18 AM EDT Ole Perea MD LAB BLOOD ORDERABLES Final R esult [facility] [address] [place] [address], [place] [phone] * (ABNORMAL) Comprehensive metabolic panel (01/11/2025 2:07 AM EDT) Sodium 137 133 - 145 mmol/L LAB CHEMISTRY METHOD 01/11/2025 2:43 AM [facility] Potassium 4.0 3.5 - 5.5 mmol/L LAB CHEMISTRY METHOD 01/11/2025 2:43 AM [facility] Chloride 107 96 - 110 mmol/L LAB CHEMISTRY METHOD 01/11/2025 2:43 AM [facility] CO2 22 21 - 32 mmol/L LAB CHEMISTRY METHOD 01/11/2025 2:43 AM [facility] Anion Gap 8 3 - 11 LAB CHEMISTRY METHOD 01/11/2025 2:43 AM [facility] Glucose 317(H) 70 - 100 mg/dL LAB CHEMISTRY METHOD 01/11/2025 2:43 AM [facility] BUN 18 5 - 25 mg/dL LAB CHEMISTRY METHOD 01/11/2025 2:43 AM [facility] Creatinine 1.00 0.70 - 1.30 mg/dL LAB CHEMISTRY METHOD 01/11/2025 2:43 AM [facility] eGFR 93 >=60 mL/min/1. 73m2 LAB CHEMISTRY METHOD 01/11/2025 2:43 AM [facility] Comment:Calculation based on the Chronic Kidney Disease Epidemiology Collaboration (CKD-EPI) equation refit without adjustment for race. BUN/Creatinine Ratio 18.0 LAB CHEMISTRY METHOD 01/11/2025 2:43 AM [facility] Calcium 8.9 8.5 - 10.5 mg/dL LAB CHEMISTRY METHOD 01/11/2025 2:43 AM [facility] AST (SGOT) 25 10 - 42 unit/L LAB CHEMISTRY METHOD 01/11/2025 2:43 AM [facility] ALT (SGPT) 34 10 - 60 unit/L LAB CHEMISTRY METHOD 01/11/2025 2:43 AM [facility] Alkaline Phosphatase 230(H) 42 - 121 unit/L LAB CHEMISTRY METHOD 01/11/2025 2:[address] [facility] Total Protein 6.7 6.0 - 8.0 g/dL LAB CHEMISTRY METHOD 01/11/2025 2:[address] [facility] Albumin 3.7 3.2 - 5.0 g/dL LAB CHEMISTRY METHOD 01/11/2025 2:[address] [facility] Total Bilirubin 0.8 0.0 - 1.4 mg/dL LAB CHEMISTRY METHOD 01/11/2025 2:[address] [facility] Blood Venous blood specimen / Unknown Venipuncture / Unknown 01/11/2025 2:07 AM EDT 01/11/2025 2:18 AM EDT Ole Perea MD LAB BLOOD ORDERABLES Final R esult Performing Organization Address City/[facility] Co de Phone Number [facility] [address] [place] [address], [place] [phone] * ECG 12 lead (01/11/2025 1:39 AM EDT) Ventricular Rate ECG 112 BPM GEMUSE Atrial Rate 112 BPM GEMUSE P-R Interval 166 ms GEMUSE QRS Duration 90 ms GEMUSE Q-T Interval 328 ms GEMUSE QTc 447 ms GEMUSE P Wave [place] 21 degrees GEMUSE R [place] 14 degrees GEMUSE T [place] 28 degrees GEMUSE ECG Interpretation Sinus tachycardia Otherwise normal ECG When compared with ECG of 21-SEP-2024 12:44, No significant change was found Confirmed by NOEL GONSALEZ ([id number]) on 01/11/2025 11:06:52 PM GEMUSE 01/11/2025 1:39 AM EDT 01/11/2025 11:06 PM EDT Ole Perea MD ECG ORDERABLES Final Result Performing Organization Address City/[facility]/ZIP Co de Phone Number GEMUSE from Last 3 Months Insurance [facility] MEDICARE Member Subscriber Plan / Payer (Ef fective 2022-Present) Name:[employer] SALES Relation to Subscriber:Self Name:Suleman Sales Payer ID:[id number] Group ID:[id number] Type:Not on file Address: 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 Health Care Decision (hx) 07/20/2023 AD AMBROCIO DIRECTIVE Health Care Decision (hx) 07/20/2023 AD AMBROCIO DIRECTIVE Health Care Decision (hx) 07/20/2023 AD AMBROCIO DIRECTIVE Health Care Decision (hx) 07/20/2023 AD AMBROCIO DIRECTIVE Health Care Decision (hx) 07/20/2023 AD AMBROCIO DIRECTIVE Health Care Decision (hx) 07/20/2023 AD AMBROCIO DIRECTIVE Health Care Decision (hx) 07/20/2023 AD AMBROCIO DIRECTIVE Health Care Decision (hx) 07/20/2023 AD AMBROCIO DIRECTIVE Health Care Decision (hx) 07/20/2023 AD AMBROCIO DIRECTIVE Health Care Decision (hx) 07/20/2023 AD AMBROCIO DIRECTIVE Health Care Decision (hx) 07/20/2023 AD AMBROCIO DIRECTIVE Health Care Decision (hx) 07/20/2023 AD AMBROCIO DIRECTIVE Health Care Decision (hx) 07/20/2023 AD AMBROCIO DIRECTIVE Health Care Decision (hx) 07/20/2023 AD AMBROCIO DIRECTIVE Health Care Decision (hx) 07/20/2023 AD AMBROCIO DIRECTIVE Health Care Decision (hx) 07/20/2023 AD AMBROCIO DIRECTIVE Health Care Decision (hx) 07/20/2023 AD AMBROCIO DIRECTIVE Health Care Decision (hx) 07/20/2023 AD AMBROCIO DIRECTIVE Health Care Decision (hx) 07/17/2023 HE ALTH CARE PROXY Health Care Decision (hx) 07/17/2023 HE ALTH CARE PROXY Health Care Decision (hx) 07/17/2023 HE ALTH CARE PROXY Health Care Decision (hx) 07/17/2023 HE ALTH CARE PROXY Health Care Decision (hx) 07/17/2023 HE ALTH CARE PROXY Health Care Decision (hx) 07/17/2023 HE ALTH CARE PROXY Health Care Decision (hx) 07/17/2023 HE ALTH CARE PROXY Health Care Decision (hx) 07/17/2023 HE ALTH CARE PROXY Health Care Decision (hx) 07/17/2023 HE ALTH CARE PROXY Health Care Decision (hx) 07/17/2023 HE ALTH CARE PROXY Health Care Decision (hx) 07/17/2023 HE ALTH CARE PROXY Health Care Decision (hx) 07/17/2023 HE ALTH CARE PROXY Health Care Decision (hx) 07/17/2023 HE ALTH CARE PROXY Health Care Decision (hx) 07/17/2023 HE ALTH CARE PROXY Health Care Decision (hx) 07/17/2023 HE ALTH CARE PROXY Health Care Decision (hx) 07/17/2023 HE ALTH CARE PROXY Health Care Decision (hx) 07/17/2023 HE ALTH CARE PROXY Health Care Decision (hx) 07/17/2023 HE ALTH CARE PROXY Care Teams Swimming Coach Or Instructor Relationship Specialty Start Date End Date Yonny Nolasco PA [address] [place] [phone] PCP - General 07/27/23
--- OUTSIDE RECORDS SUMMARY | 2025-01-30 14:32 | XMS_ITS ---
Author Organization [facility] Address [address] [place] [address] Phone Care Team Providers Care Maintenance Department Technician Name Role Phone Yonny Nolasco Primary Care Provider [phone] Active Problems Problem Noted Date Diagnosed Date Prostate cancer metastatic t o bone ([facility] V24, [facility] V28) 08/23/2023 Rectal cancer metastatic to bone ([facility] V24, C IN/[facility] V28) 08/10/2023 Current Oncology Plans CENTRAL VENOUS ACCESS ( CVA ) MAINTENANCE / BLOOD DRAW / CATHETER CLEARANCE / DRESSING CHANGE / FLUSH & LEUPROLIDE ( ELIGARD SQ / LUPRON IM ) 45 MG EVERY 24 WEEKS* Plan Start Date:06/11/2024 Plan Provider:Sj Addison MD Linked Problems Prostate cancer metastatic t o bone ([facility] V24, [facility] V28)Rectal cancer metastatic to bone ([facility] V24, [facility] V28) Treatment Medications leuprolide (ELIGARD) Past Plans Oncology Treatment Plan Name Start Date Discontinue Date Treatment Medications Discontinue Reason Plan Provider Cycles DOCEtaxel + Darolutamide 4 02/24/2024 DOCEtaxel (TAXOTERE) - Therapy Complete Sj Addison MD Treatment not started Radiation Treatments * No radiation treatments are documented for this patient in [facility]. Treatments may have been administered in another system.
--- OUTSIDE RECORDS SUMMARY | 2025-01-30 14:32 | XMS_ITS | Encounter Summary ---
Author Organization [facility] Address [address] [place] [phone] Phone Care Team Providers Care Conveyor Technician Name Role Phone Gustavo Temple MD Unavailable [phone] Yonny Martinez Unavailable Unavailable Pcp, Unknown Primary Care Provider UnavailSj Montenegro MD Unavailable [phone] Pcp, Not Required Primary Care Provider Unavaila Jennifer Artis RN Unavailable [email or web address] [facility] Unavailable [phone] Annetta Dia SURGERY CONSULTANT, PhD Unavailable Pcp, Unknown Primary Care Provider Unavailabl e Reason for Referral * MRI/CAT Scan - Closed Specialty Diagnoses / Procedures Referred By Camille t Referred To Contact Radiology Diagnoses Research study patient Procedures PET/CT Body Other/Research Katie Liao MD Phone: tel: fax: mailto:[email or web address] Referral ID Status Reason Start Date Expiration Date Visits Re quested Visits Authorized [id number] Closed 04/16/2024 06/08/2024 1 1 Encounter Details Date Type Department Care Team (Late st Contact Info) Description 03/30/2024 Ancillary Orders VIRTUAL DEPARTMENT [address] [place] [id number] Katie Liao MD [address] [place] [phone] [email or web address] Research study patient (Primary Dx) Social History Tobacco Use Types [...] high school, GED, job training, learning the Spanish language, technical skills, or developing parenting skills)? [...] st Contact Info) Description 10/10/2024 Procedure Pass [facility], [place] [address] [address] 10/10/2024 Procedure Pass [place], [place] [address] [address] 02/08/2025 11:30 AM EDT Appointment [facility], Nuclear Medicine [address] [place] [phone] Renata Gaston MD [address] [place] [address] [email or web address] 02/08/2025 1:30 PM EDT Appointment [facility], [place] [address] [address] Renata Gaston MD [address] [place] [address] [email or web address] 02/08/2025 2:15 PM EDT Appointment [facility], Nuclear Medicine [address] [place] [address] Renata Gaston MD [address] [place] [address] [email or web address] 02/11/2025 1:50 PM EDT Blood Draw Laboratory Services, [facility] [address] [facility], [address] [place] [address] Renata Gaston MD [address] [address] [email or web address] 02/11/2025 3:00 PM EDT Office Visit [facility], [address], [address], [place] [address] Wendy Epps MD, MPH [address] [place] [address] [email or web address] 02/11/2025 3:00 PM EDT Nurse Only [facility], [address], [address] [place] [address] Renata Gaston MD [address] [place] [id number] [email or web address] 02/11/2025 4:00 PM EDT Infusion Infusion Therapy Services [address], [address] [place] [address] Renata Gaston MD [address] [place] [phone] [email or web address] Jennifer Suarez RN [address] [place], [place] ELDA@ [facility] 02/12/2025 1:00 PM EDT Appointment [facility], Nuclear Medicine [address] [address] Renata Gaston MD [address] [address] [email or web address] 02/20/2025 3:00 PM EDT Telemedicine Adult Palliative Care, [address], 11th [place] [address] Annetta Dia NP, PhD [address] [place] [address] [place] [address] [email or web address] Kathe Ferreira MD, MPH [address] [place] [address] [email or web address] documented as of this encounter Results * PET/CT Body Other/Research (04/16/2024 4:35 PM EST) Anatomical Region Laterality Modality Computed Tomogra phy Other 04/25/2024 8:58 AM EST Impressions 04/27/2024 11:49 AM EST 1. Performed as part of [facility] clinical trial 23-267. 2. Majority of bone metastases are more PSMA than fluciclovine-avid as are a few retroperitoneal lymph nodes. No PSMA-negative/fluciclovine positive disease. 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 PSA = 0.39 (03/08/2024). Subsequent treatment strategy. TECHNIQUE: Radiopharmaceutical: [id number]. Dose: 10.6 mCi. Image acquisition: Approximately 66 minutes following IV tracer administration via the right right antecubital fossa vein, positron emission tomography was performed from the vertex through the knees. Non-contrast low-dose helical CT imaging was performed over the same range without breath-hold for attenuation correction of PET images and anatomic correlation. COMPARISON: FDG PET/CT dated 03/08/2024. PSMA PET/CT on 03/26/2024. Fluciclovine PET/CT on 10/01/2023. FINDINGS: HEAD AND NECK: No abnormal uptake outside skeleton in the head and neck. . Unchanged 0.8 cm hypoattenuating left thyroid nodule demonstrating radiotracer uptake similar to blood pool. CHEST: Ports and devices: Right internal jugular Port-A-Cath with tip at the right atrium. Lungs: No abnormal radiotracer uptake. Right upper lobe and left lower lobe calcified granulomas (images 126 and 152) . Pleura: No abnormal radiotracer uptake. Lymph nodes: Focus of slightly misregistered radiotracer uptake in the 1.0 cm right axillary node (image 102). No mediastinal, hilar, or supraclavicular lymphadenopathy. Mediastinum: No abnormal radiotracer uptake. Unchanged 0.8 cm hypoattenuating left thyroid nodule demonstrating radiotracer uptake similar to blood pool. Breasts/Chest wall: No abnormal radiotracer uptake. Bilateral gynecomastia. ABDOMEN/PELVIS: Liver/Biliary system: No abnormal radiotracer uptake. Pancreas: No abnormal radiotracer uptake. Spleen: No abnormal radiotracer uptake. Splenomegaly measuring 16.6 cm in AP dimension, previously 16.7 cm. Adrenal Glands: No abnormal radiotracer uptake. Kidneys: No abnormal radiotracer uptake. Bowel: No abnormal radiotracer uptake. Left lower quadrant loop colostomy with similar parastomal hernia containing nonobstructed loops of small bowel. Mesentery, Omentum and Peritoneum: No abnormal radiotracer uptake. Pelvic Organs: The prostate is not enlarged. There is heterogeneous intense PSMA uptake within the prostate. Lymph Nodes: There are mildly to moderately fluciclovine-avid inguinal lymph nodes (images 335-299). At least one is more fluciclovine avid than PSMA avid, left inguinal node (image 297, 16x9 mm). There appears to May avid retroperitoneal lymph nodes that do not have increased use including uptake; for example, a left para-aortic node measuring 10 x 10 mm with blood pool uptake (image 218) and lymph nodes left anterolateral to the aorta (image 212). Musculoskeletal: There is diffuse physiologic fluciclovine uptake throughout the bones and including correlating with most of the sclerotic lesions on CT. There are a few areas of more focal, increased fluciclovine uptake, including: small focus in the left acetabulum (image 284, without increased PSMA uptake), subtle focal uptake at the right aspect of T8 correlating with normal marrow on CT in between sclerotic lesions (image 152 , this areas does not have increased PSMA uptake), subtle increased uptake in T4 has a slightly different distribution than the abnormal PSMA uptake in the bone. Moderate fat-containing umbilical hernia. Procedure Note Katie Liao MD - 04/27/2024 Reason for exam (per EHR order): Research Study Additional clinical information obtained from the EHR: 49-year-old malewith history of poorly differentiated metastatic carcinoma neuroendocrinefeatures, prostatic origin in the setting of elevated PSA. PSA = 0.39(03/08/2024). Subsequent treatment strategy. TECHNIQUE: Radiopharmaceutical: [id number]. Dose: 10.6 mCi. Image acquisition: Approximately 66 minutes following IV traceradministration via the right right antecubital fossa vein, positronemission tomography was performed from the vertex through the knees.Non-contrast low-dose helical CT imaging was performed over the same rangewithout breath-hold for attenuation correction of PET images and anatomiccorrelation. COMPARISON: FDG PET/CT dated 03/08/2024. PSMA PET/CT on 03/26/2024.Fluciclovine PET/CT on 10/01/2023. FINDINGS: HEAD AND NECK: No abnormal uptake outside skeleton in the head and neck. .Unchanged 0.8 cm hypoattenuating left thyroid nodule demonstratingradiotracer uptake similar to blood pool. CHEST: Ports and devices: Right internal jugular Port-A-Cath with tip at theright atrium. Lungs: No abnormal radiotracer uptake. Right upper lobe and left lowerlobe calcified granulomas (images 126 and 152) . Pleura: No abnormal radiotracer uptake. Lymph nodes: Focus of slightly misregistered radiotracer uptake in the 1.0cm right axillary node (image 102). No mediastinal, hilar, orsupraclavicular lymphadenopathy. Mediastinum: No abnormal radiotracer uptake. Unchanged 0.8 cmhypoattenuating left thyroid nodule demonstrating radiotracer uptakesimilar to blood pool. Breasts/Chest wall: No abnormal radiotracer uptake. Bilateralgynecomastia. ABDOMEN/PELVIS: Liver/Biliary system: No abnormal radiotracer uptake. Pancreas: No abnormal radiotracer uptake. Spleen: No abnormal radiotracer uptake. Splenomegaly measuring 16.6 cm inAP dimension, previously 16.7 cm. Adrenal Glands: No abnormal radiotracer uptake. Kidneys: No abnormal radiotracer uptake. Bowel: No abnormal radiotracer uptake. Left lower quadrant loop colostomywith similar parastomal hernia containing nonobstructed loops of smallbowel. Mesentery, Omentum and Peritoneum: No abnormal radiotracer uptake. Pelvic Organs: The prostate is not enlarged. There is heterogeneousintense PSMA uptake within the prostate. Lymph Nodes: There are mildly to moderately fluciclovine-avid inguinallymph nodes (images 335-299). At least one is more fluciclovine avid thanPSMA avid, left inguinal node (image 297, 16x9 mm). There appears to May avid retroperitoneal lymph nodes that do not haveincreased use including uptake; for example, a left para-aortic nodemeasuring 10 x 10 mm with blood pool uptake (image 218) and lymph nodesleft anterolateral to the aorta (image 212). Musculoskeletal: There is diffuse physiologic fluciclovine uptakethroughout the bones and including correlating with most of the scleroticlesions on CT. There are a few areas of more focal, increased fluciclovineuptake, including: small focus in the left acetabulum (image 284, withoutincreased PSMA uptake), subtle focal uptake at the right aspect of [id number] with normal marrow on CT in between sclerotic lesions ([id number] , this areas does not have increased PSMA uptake), subtle increaseduptake in T4 has a slightly different distribution than the abnormal PSMAuptake in the bone. Moderate fat-containing umbilical hernia. IMPRESSION: 1. Performed as part of [facility] clinical trial 23-267. 2. Majority of bone metastases are more PSMA than fluciclovine-avid as area few retroperitoneal lymph nodes. No PSMA-negative/fluciclovine positivedisease. Katie Liao MD [facility] [place] Final Result documented in this encounter Visit Diagnoses Diagnosis Research study patient- Primary Research study patient documented in this encounter Care Teams Conveyor Technician Relationship Specialty Start Date End Date Yonny Martinez PA [address] [place] [address] PCP - Internal Medicine Physician Agricultural Loan Officer 08/01/23 01/20/25 Pcp, Unknown PCP - General 08/04/23 08/20/24 Pcp, Not Required [address] [place] [id number] PCP - General 08/21/24 01/20/25 Pcp, Unknown PCP - General 01/21/25 Gustavo Temple MD [address] [place] [phone] [email or web address] 08/01/23 Sj Addison MD [address] [place] [phone] [email or web address] Medical Oncology 09/13/23 Jennifer Suarez RN [address] [place] [id number] [email or web address] Primary Infusion Nurse 08/30/24 Juany Echeverria, [facility] [address] [place] [address] [email or web address] Windows Server Administrator Licensed Clinical Windows Server Administrator 09/10/24 Annetta Dia, FABI, PhD [address] [place] [address] [place] [address] [email or web address] Palliative Care 10/03/24 documented as of this encounter Additional Source Comments The information contained in this document represents components of the legal health record. It is not the complete legal health record.[facility]
== END 2025-01-30 12:13 | disposition home or self-care (01) ==
LOC: HO.HMCFMS 11:22
PROVIDERS: PCP Student in an Organized Health Care Education/Training Program; Visit Provider Student in an Organized Health Care Education/Training Program
DX: E66.812 Obesity, class 2 (principal); R00.0 Tachycardia, unspecified; C61 Malignant neoplasm of prostate; C79.51 Secondary malignant neoplasm of bone; Z98.890 Other specified postprocedural states; Z93.9 Artificial opening status, unspecified

== ENCOUNTER 2025-01-30 11:22 | Outpatient (REF) | payer OTHER, SELFPAY ==
[2025-01-30 18:07] LABS: MANUAL DIFF FLAG NO
[2025-01-30 18:19] LABS: Hematocrit 29.7 % (42.0-52.0); Hemoglobin 10.2 g/dl (14.0-18.0); Imm Gran Abs Auto 0.02 X10*3/uL (0.00-0.03); Imm Gran Pct Auto 0.4 % (0.0-0.4); Lymphocytes Absolute Auto 0.6 X10*3/uL (1.2-4.9); Mean Corpuscular HGB Conc 34.3 g/dl (31.0-36.0); Mean Corpuscular Hemoglobin 28.2 pg (27.0-33.0); Mean Corpuscular Volume 82.0 fL (80.0-98.0); NRBC Abs Auto 0.000 X10*3/uL (0.0-0.012); NRBC Pct Auto 0.0 /100WBC (0.0-0.2); Platelet Count 194 X10*3/uL (160-400); Red Blood Count 3.62 X10*6/uL (4.60-5.80); White Blood Count 5.3 X10*3/uL (4.8-10.8)
[2025-01-30 18:27] LABS: Appearance Urine Turbid; Glucose Urine UA 100 mg/dL (Negative); PH 5.5 (5.0-9.0); Specific Gravity - Urine 1.025 (1.005-1.025)
[2025-01-30 18:42] LABS: Alanine Aminotransferase 37 U/L (0-40); Albumin Level 4.4 g/dL (3.5-5.0); Alkaline Phosphatase 292 U/L (39-117); Anion Gap 14 (12-20); Aspartate Amino Transferase 34 U/L (5-37); Blood Urea Nitrogen 11 mg/dL (9-16); Calcium 9.4 mg/dL (8.4-10.2); Carbon Dioxide 24 mmol/L (22-29); Chloride 103 mmol/L (96-108); Cholesterol 93 mg/dL (<200); Estimated Glomerular Filt Rate > 60; HDL Cholesterol 27 mg/dL (>40); Potassium 4.4 mmol/L (3.3-5.1); Sodium 137 mmol/L (135-145); Total Protein 7.1 g/dL (6.5-8.0); Triglycerides 85 mg/dL (<150)
[2025-01-30 19:23] LABS: Folate 9.8 ng/mL (> or = 4.0); Vitamin B12 352 pg/mL (200-900)
[2025-01-31 04:29] LABS: HBS Num1 0.71 mIU/mL (0-7.99); HBsAGNum1 0.31 S/CO (0.00-0.99); HIV Num 1 0.04 S/CO (0.00-0.99); Hepatitis B Surface Antigen Negative (Negative); ~HepC Num1 0.07 S/CO (0.00-0.79); ~Hepatitis B Surface Antibody NONREACTIVE (Nonreactive); ~Hepatitis C Antibody Nonreactive (Nonreactive)
[2025-02-05 15:34] LABS: VITAMIN D (1,25 OH) D3 35 pg/mL; Vit D (1,25-Dihydroxy) Total 35 pg/mL (18-72); Vitamin D (1,25 OH) D2 <8 pg/mL
== END 2025-01-30 11:23 | disposition home or self-care (01) ==
LOC: HO.HKASLDS 11:22
PROVIDERS: Visit Provider Student in an Organized Health Care Education/Training Program
DX: Z76.89 Persons encountering health services in other specified circumstances (principal); Z13.9 Encounter for screening, unspecified; Z71.9 Counseling, unspecified; Z13.31 Encounter for screening for depression; Z11.4 Encounter for screening for human immunodeficiency virus [HIV]; Z11.3 Encounter for screening for infections with a predominantly sexual mode of transmission; F43.23 Adjustment disorder with mixed anxiety and depressed mood; E66.812 Obesity, class 2; C61 Malignant neoplasm of prostate; C79.51 Secondary malignant neoplasm of bone; R00.0 Tachycardia, unspecified; Z98.890 Other specified postprocedural states; Z93.9 Artificial opening status, unspecified; Z68.39 Body mass index [BMI] 39.0-39.9, adult
CPT/HCPCS: 36415; 80053; 80061; 81003; 82607; 82652; 82746; 83036; 85025; 86706; 86803; 87340; 87389; 99202

== ENCOUNTER 2025-02-13 15:57 | Outpatient (AMB) | payer OTHER, SELFPAY ==
[2025-02-13 16:05] VITALS: BP 136/82; PULSE 95; RESP 16; TEMP 36.6; O2SAT 98; BMI 57.2
--- NOTE | 2025-02-13 16:05 | A.OFFPC_ITS ---
Vital Signs 02/13/25 16:05 Height 5 ft 0.06 in Weight 293 lb 6 oz BMI 57.2 BP 136/82 Blood Pressure Location Rt brachial Position Sitting Respiration 16 Pulse 95 Pulse Source Pulse Oximeter Temp 97.9 F Temp Source Oral Pulse Oximetry (%) 98 Oxygen Delivery Method Room Air Intake Visit Reasons: 2 wk f/u Chief Orthoptist Required: No Accompanied by: Self / Same As Patient Allergies codeine Allergy (Unknown, Verified 02/13/25 16:06) Vomiting morphine Allergy (Verified 02/13/25 16:06) Vomiting Tobacco use date assessed: 01/30/25 Dental Screening Dental Screen Date: 01/30/25 Did you have a dental visit in the last 12 months?: Yes HPI HPI Comments History of Present Illness Details History of Present Illness The patient is a 50-year-old male presenting with prostate cancer with bone metastasis, diabetes mellitus, and essential hypertension. Prostate cancer with bone metastasis: - The patient is undergoing chemotherapy and has experienced bone pain, for which radiation therapy has been suggested. - The patient is considering radiation t herapy for pain management and is advised to weigh the risks and benefits. Diabetes mellitus: - The patient's glucose level is elevate d at 333 mg/dL, and hemoglobin A1c is 9 .4%. - The patient is on Lantus insulin, adju sting doses post-chemotherapy. Essential hypertension: - The patient is on lisinopril and labet alol for blood pressure management. Anemia secondary to chemotherapy: - The patient is anemic, a common side e ffect of chemotherapy, and is taking medication to manage it. Review of Systems 10-point ROS reviewed and negative excep t as noted in HPI Past Medical History - Prostate cancer with bone metastasis - Diabetes mellitus - Essential hypertension - Anemia secondary to chemotherapy Health Maintenance Physical Exam General: Well-appearing, in no acute distress. Vital signs: Within normal limits. HEENT: Normocephalic, atraumatic. PERRLA, EOMI. Conjunctiva clear, sclera anicteric. Oropharynx clear, mucous membranes moist. TMs intact bilaterally. Neck: Supple, no lymphadenopathy, no thyromegaly, no JVD or carotid bruits. Cardiovascular: RRR, normal S1/S2, no murmurs, rubs, or gallops. Peripheral pulses 2+ and symmetric. No edema. Respiratory: Lungs clear to auscultation bilaterally, no wheezes, rales, or rhonchi. Normal effort. Abdomen: Soft, non-tender, non-distended. Normoactive bowel sounds. No hepatosplenomegaly, no masses. MSK: Full range of motion, no joint swelling or deformity. Normal gait. Skin: Warm, dry, intact. No rashes, lesions, or pallor. Neuro: Alert and oriented x3. Cranial nerves II-XII intact. Strength 5/5 throughout. Sensation intact. Reflexes 2+ symmetric. Normal coordination and gait. Psych: Appropriate mood and affect. Normal judgment and insight. Plan 1. Prostate Cancer With Bone Metastasis - Continue chemotherapy regimen and cons ider radiation therapy for bone pain management. - Discuss potential risks and benefits o f radiation therapy with the oncology team. 2. Diabetes Mellitus - Monitor blood glucose levels and adjus t Lantus insulin dosage as needed, especially post-chemotherapy. - Re-evaluate hemoglobin A1c in three mo nths to assess diabetes control. 3. Essential Hypertension - Continue current antihypertensive medi cations, lisinopril and labetalol. 4. Anemia Secondary To Chemotherapy - Continue current anemia management reg imen and monitor hemoglobin levels. Discussion Notes During the visit, we discussed the management of prostate cancer with bone metastasis, including the continuation of chemotherapy and the potential for radiation therapy to manage bone pain. I advised the patient to consider the risks and benefits of radiation therapy and to discuss these with the oncology team. We also reviewed the patient's diabetes management, emphasizing the importance of monitoring blood glucose levels and adjusting insulin dosage as needed. The patient's hypertension management was confirmed to continue with current medications. Anemia management was also addressed, with a plan to monitor hemoglobin levels. Follow-up in three months was recommended to reassess diabetes control. Patient was informed and verbally consented to the use of an ambient scribefor clinic note documentation during this visit. Patient Instructions - Continue chemotherapy as prescribed. - Discuss radiation therapy options with your oncology team. - Monitor blood glucose levels regularly and adjust insulin dosage as advised. - Continue taking lisinopril and labetal ol for blood pressure management. - Follow up in three months to reassess diabetes control. Total time spent caring for the patient today was 30 minutes. This includes time spent before the visit reviewing the chart, time spent documenting, and time spent reviewing laboratory results, diagnostic imaging, medications, performing a medically necessary evaluation, counseling on diagnoses, care coordination. [facility] Medical History (Updated 01/30/25 @ 12:11 by Damián Arenas MD) Prostate cancer metastatic to bone Family History Mother Diabetes Father No problems noted. Social History Housing: Apartment Patient Tobacco Use Status: Never used Tobacco service: No Current occupational status: unemployed Cognitive needs: Yes Hearing needs: No Vision needs: No Questionnaire PHQ-9 Over the last 2 weeks, how often have you been bothered by any of the following problems? 1. Little interest or pleasure in doing things: more than half the days 2. Feeling down, depressed, or hopeless: more than half the days 3. Trouble falling or staying asleep, or sleeping too much: not at all 4. Feeling tired or having little energy: more than half the days 5. Poor appetite or overeating: not at all 6. Feeling bad about yourself - or that you are a failure or have let yourself or your family down: not at all 7. Trouble concentrating on things, such as reading the newspaper or watching television: not at all 8. Moving or speaking so slowly that other people could have noticed. Or the opposite - being so fidgety or restless that you have been moving around a lot more than usual: not at all 9. Thoughts that you would be better off or of hurting yourself in some way: not at all Total score: 6 Depression Screening Interpretation: Positive Depression Screening Done: Yes Source: Developed by Drs. Nestor Frey, Nasrin Posada, Mario Jaramillo and colleagues, with an educational shayy from [employer]. Thrive Questionnaire Date Thrive assessed: 01/30/25 I am a: Patient What is your living situation today?: I have a steady place to live Within the past 12 months, did the food you bought not last and you didn't have the money to get more?: Never true Within the past 12 months, did you worry whether your food would run out before you got money to buy more?: Never true Do you have trouble paying for medicines?: No Do you have trouble getting transportation to medical appointments?: No Do you have trouble paying your heating and electricity bill?: Yes Do you have trouble taking care of your child, family member or friend?: No Are you currently unemployed and looking for a job?: No Are you interested in more education?: No Currently or been in a relationship where the following occur: No concerns reported THRIVE Score: 1 JENNY-7 AMB Questionnaire JENNY-7 Date JENNY - 7 assessed: 01/30/25 Feeling nervous, anxious, or on edge: 1 = Several days Not being able to stop or control worryin = Several days Worrying too much about different things: 1 = Several days Trouble relaxin = Several days Being so restless that it is hard to sit still: 0 = Not at all Becoming easily annoyed or irritable: 0 = Not at all Feeling afraid as if something awful might happen: 1 = Several days Total JENNY-7 score (0-4 normal; 5-9 mild; 10-14 moderate; 15-21 severe): 5 Source: Developed by Drs. Nestor Frey, Nasrin Posada, Mario Jaramillo and colleagues, with an educational shayy from [employer]. Physical exam (Primary Care) Vital Signs: Last Vital Signs Temp 97.9 F 02/13/25 16:05 Pulse 95 02/13/25 16:05 Resp 16 02/13/25 16:05 BP 136/82 02/13/25 16:05 Pulse Ox 98 02/13/25 16:05 Oxygen Delivery Method Room Air 02/13/25 16:05 BMI result Body Mass Index 57.2 Tobacco/Smoking Status: Tobacco use Status Tobacco use date assessed 01/30/25 02/13/25 16:08 Patient Tobacco Use Status Never used Tobacco 02/13/25 16:08 PHQ-9: PHQ-9 Score PHQ-9: Total score 6 02/13/25 16:08 Depression Screening Interpretation: Positive Thrive Assessment: Date of Thrive Assessment Date Thrive assessed 01/30/25 02/13/25 16:08 Currently or been in a relationship where the following occur: No concerns reported Coding Level of Care Code Est Pt Level 4 (53812) Diagnoses Prostate cancer metastatic to bone C61; C79.51 Diabetes type 2 E11.9 Essential hypertension I10 Anemia associated with chemotherapy D64.81; T45.1X5A Assessment & Plan Assessment & Plan (1) Prostate cancer metastatic to bone: Code(s): C61 - Malignant neoplasm of prostate; C79.51 - Secondary malignant neoplasm of bone Category: Medical (2) Diabetes type 2: Code(s): E11.9 - Type 2 diabetes mellitus without complications (3) Essential hypertension: Code(s): I10 - Essential (primary) hypertension (4) Anemia associated with chemotherapy: Code(s): D64.81 - Anemia due to antineoplastic chemotherapy; T45.1X5A - Adverse effect of antineoplastic and immunosuppressive drugs, initial encounter Plan
== END 2025-02-13 16:27 | disposition home or self-care (01) ==
LOC: HO.HMCFMS 15:58
PROVIDERS: PCP Student in an Organized Health Care Education/Training Program; Visit Provider Student in an Organized Health Care Education/Training Program
DX: C61 Malignant neoplasm of prostate (principal); C79.51 Secondary malignant neoplasm of bone; E11.9 Type 2 diabetes mellitus without complications; I10 Essential (primary) hypertension; D64.81 Anemia due to antineoplastic chemotherapy; T45.1X5A Adverse effect of antineoplastic and immunosuppressive drugs, initial encounter

== ENCOUNTER → 2025-02-13 15:57 | Outpatient (BNVA) | payer OTHER, SELFPAY | PROVIDERS: PCP Student in an Organized Health Care Education/Training Program; Visit Provider Student in an Organized Health Care Education/Training Program | DX: C61 Malignant neoplasm of prostate (principal); C79.51 Secondary malignant neoplasm of bone; D64.81 Anemia due to antineoplastic chemotherapy; T45.1X5A Adverse effect of antineoplastic and immunosuppressive drugs, initial encounter; E11.9 Type 2 diabetes mellitus without complications; I10 Essential (primary) hypertension | CPT/HCPCS: 96127; 99212 ==